=== PATIENT | male | born 1960 | race Caucasian/White ===

== ENCOUNTER 2019-02-01 10:24 | Inpatient (IN) | payer OTHER ==
[2019-02-01] MEDS ORDERED: ADENOSINE INJ/PF 6 MG/2 ML SDV IV ONE ×2 (10:28→10:35)
[2019-02-01] MEDS ORDERED: DILTIAZEM HCL INJ 25 MG/5 ML VIAL ONE (10:33)
[2019-02-01] MEDS ORDERED: DILTIAZEM HCL/D5W 125 MG/125 ML RTUINJ IV ONE (10:33)
[2019-02-01] MEDS ORDERED: ASPIRIN 81 MG TABLET, CHEWABLE PO ONE ×2 (10:34→20:20)
[2019-02-01] MEDS ORDERED: DILTIAZEM HCL INJ 25 MG/5 ML VIAL IV ONE ×2 (10:35→11:47)
[2019-02-01] MEDS: DILTIAZEM HCL/D5W 125 MG/125 ML RTUINJ IV PRN ×2 (10:36→18:05)
[2019-02-01 10:42] LABS: ABSOLUTE BASOPHILS # (AUTO) 0.1 10^3/uL (0.0-0.2); ABSOLUTE EOSINOPHILS # (AUTO) 0.1 10^3/uL (0.0-0.6); ABSOLUTE LYMPHOCYTES (AUTO) 1.2 10^3/uL (0.5-4.7); ABSOLUTE MONOCYTES (AUTO) 0.9 10^3/uL (0.1-1.4); ABSOLUTE NEUT (AUTO) 5.2 10^3/uL (1.7-8.2); EOSINOPHILS % (AUTO) 1.6 % (0-6); HEMATOCRIT 41.3 % (37.9-51.0); HEMOGLOBIN 14.3 g/dL (13.5-17.0); LYMPHOCYTES % (AUTO) 15.6 % (13-45); MEAN CORPUSCULAR HEMOGLOBIN 35.7 pg (27.0-33.4); MEAN CORPUSCULAR HGB CONC 34.6 g/dL (32.0-36.0); MEAN CORPUSCULAR VOLUME 103 fl (80-97); MONOCYTES % (AUTO) 12.4 % (3-13); PLATELET COUNT 242 10^3/uL (150-450); RED CELL DISTRIBUTION WIDTH 14.2 % (11.5-14.0); SEGMENTED NEUTROPHILS % (AUTO) 69.4 % (42-78); TOTAL CELLS COUNTED % (AUTO) 100 %; WHITE BLOOD COUNT 7.5 10^3/uL (4.0-10.5)
[2019-02-01] MEDS ORDERED: NORMAL SALINE 1000 ML 1,000 ML IV ONE (10:43)
[2019-02-01 11:08] LABS: CREATINE KINASE MB 0.58 ng/mL (<4.55); TROPONIN I 0.015 ng/mL
--- NOTE | 2019-02-01 11:11 | RADIOLOGY REPORT (SQ) ---
EXAM DESCRIPTION: CHEST SINGLE VIEW COMPLETED DATE/TIME: 02/01/2019 11:00 am REASON FOR STUDY: HR 230 COMPARISON: None. NUMBER OF VIEWS: One view. TECHNIQUE: Single frontal radiographic view of the chest acquired. LIMITATIONS: Overlying support apparatus. FINDINGS: LUNGS AND PLEURA: No opacities, masses or pneumothorax. No pleural effusion. MEDIASTINUM AND HILAR STRUCTURES: No masses. Contour normal. HEART AND VASCULAR STRUCTURES: Heart enlarged without failure. Normal vasculature. BONES: No acute findings. HARDWARE: None in the chest. OTHER: No other significant finding. IMPRESSION: HEART ENLARGED WITHOUT FAILURE. NO OTHER SIGNIFICANT RADIOGRAPHIC FINDING IN THE CHEST. TECHNICAL DOCUMENTATION: JOB ID: [id number] [employer]- All Rights Reserved Reading location - IP/workstation name: [email or web address]
[2019-02-01 11:26] LABS: FREE T4 (FREE THYROXINE) 1.31 ng/dL (0.78-2.19)
[2019-02-01 11:32] LABS: ALANINE AMINOTRANSFERASE 235 U/L (21-72); ALBUMIN 3.7 g/dL (3.5-5.0); ALKALINE PHOSPHATASE 472 U/L (38-126); ANION GAP 11 (5-19); ASPARTATE AMINO TRANSFERASE 192 U/L (17-59); BILIRUBIN,DIRECT 0.7 mg/dL (0.0-0.4); BILIRUBIN,TOTAL 1.4 mg/dL (0.2-1.3); BLOOD UREA NITROGEN 21 mg/dL (7-20); CALCIUM 9.7 mg/dL (8.4-10.2); CARBON DIOXIDE 23 mmol/L (22-30); CHLORIDE 104 mmol/L (98-107); CREATINE KINASE 41 U/L (55-170); GLUCOSE 127 mg/dL (75-110); POTASSIUM 4.9 mmol/L (3.6-5.0); SODIUM 138.1 mmol/L (137-145); TOTAL PROTEIN 6.8 g/dL (6.3-8.2)
[2019-02-01 11:40] LABS: THYROID STIMULATING HORMONE 1.94 uIU/mL (0.47-4.68)
[2019-02-01 11:44] LABS: LIPASE 129.6 U/L (23-300)
[2019-02-01 11:48] LABS: ALCOHOL < 10 mg/dL (NONE DETECTED)
--- NOTE | 2019-02-01 12:32 | RADIOLOGY REPORT (SQ) ---
EXAM DESCRIPTION: CTA CHEST COMPLETED DATE/TIME: 02/01/2019 12:19 pm REASON FOR STUDY: svt 220 elevated ddimer COMPARISON: Same day chest radiograph TECHNIQUE: CT scan of the chest performed using helical scanning technique with dynamic intravenous contrast injection. Images reviewed with lung, soft tissue and bone windows. Reconstructed coronal and sagittal MPR images reviewed. Additional 3 dimensional post-processing performed to develop Maximal Intensity Projection images (OR P). All images stored on PACS. All CT scanners at this facility use dose modulation, iterative reconstruction, and/or weight based d osing when appropriate to reduce radiation dose to as low as reasonably achievable (ALARA). [facility]: Dose Right [facility]: CareDose [facility]: Dose Right [facility]: Teradose 4D [facility]: exozet CONTRAST TYPE AND DOSE: contrast/concentration: Isovue 350.00 mg/ml; Total Contrast Delivered: 80.0 ml; Total Saline Delivered: 80.0 ml Contrast bolus optimized for the pulmonary arteries. Not diagnostic for the aorta. RENAL FUNCTION: GFR > 60. RADIATION DOSE: CT Rad equipment meets quality standard of care and radiation dose reduction techniq ues were employed. CTDIvol: 26.7 - 59.5 mGy. DLP: 1180 mGy-cm. . LIMITATIONS: None. FINDINGS: LUNGS AND PLEURA: There are innumerable small centrilobular pulmonary nodules and scattere d ground-glass opacities, and consolidation or atelectasis of the left greater than right lung bases. Mild interlobular septal thickening. Small bilateral pleural effusions. AORTA AND GREAT VESSELS: No aneurysm. Contrast bolus not optimized for the aorta. HEART: Small pericardial effusion. Cardiomegaly. No significant coronary artery calcifications. PULMONARY ARTERIES: No emboli visualized in the main pulmonary arteries or the segmental branches. HILAR AND MEDIASTINAL STRUCTURES: No identified masses or abnormal nodes. HARDWARE: None in the chest. UPPER ABDOMEN: Perihepatic ascites. THYROID AND OTHER SOFT TISSUES: No masses. No adenopathy. BONES: No acute or significant finding. 3D MIPS: Confirm above findings. OTHER: No other significant finding. IMPRESSION: 1. Negative examination for pulmonary embolism. 2. Scattered infectious or inflammatory ground-glass opacities and centrilobular nodules. 3. Mild pulmonary edema and small bilateral pleural effusions with associated left greater than righ t basilar consolidation or atelectasis. 4. Cardiomegaly and small pericardial effusion. 5. Perihepatic ascites. COMMENT: Quality ID # [id number]: Final reports with documentation of one or more dose reduction techniques (e.g., Automated exposure control, adjustment of the mA and/or kV according to patient size, use of iterative reconstruction technique) TECHNICAL DOCUMENTATION: JOB ID: [id number] [employer]- All Rights Reserved Reading location - IP/workstation name: [email or web address]
[2019-02-01] MEDS: ENOXAPARIN SODIUM INJ 100 MG/1 ML DISP.SYRIN SUBCUT SCH ×2 (13:03→22:23)
[2019-02-01] MEDS ORDERED: DIAZEPAM INJ 10 MG/2 ML DISP.SYRIN IV ONE (14:47)
--- NOTE | 2019-02-01 14:48 | ER Document Report ---
ED General - General Chief Complaint: Arrhythmia Stated Complaint: HEART RATE ISSUES Time Seen by Provider: 02/01/19 10:45 TRAVEL OUTSIDE OF THE [place] IN LAST 30 DAYS: No - HPI Patient complains to provider of: Palpitations Notes: Patient coming in for palpitations. Patient was found by EMS to have a heart rate of 220. Patient states he has been having palpitation for approximate 1-2 weeks. Patient does states that he does drink alcohol daily approximately 1/5 of liquor. Patient states that he has no medical issues is not taking medications not allergic to any medications patient denies any recent travel shortness of breath. Patient denies any trauma. Upon my evaluation patient is hooked up to the monitor heart rate is 220. Patient is alert and awake blood pressure is stable. Patient denies any chest pain abdominal pain nausea vomiting. Patient denies going through alcohol withdrawals patient states his last alcohol intake was approximately 48 hours ago. Patient was given adenosine by EMS 04/17/12 with no change in rhythm. We will set the patient up to perform adenosine again - Related Data Allergies/Adverse Reactions: No Known Allergies Allergy (Verified 02/01/19 10:37) Past Medical History - Social History Smoking Status: Current Every Day Smoker Frequency of alcohol use: Heavy Family History: Reviewed & Not Pertinent Patient has suicidal ideation: No Patient has homicidal ideation: No Renal/ Medical History: Denies: Hx Peritoneal Dialysis Review of Systems - Review of Systems Constitutional: No symptoms reported EENT: No symptoms reported Cardiovascular: Palpitations Respiratory: No symptoms reported Gastrointestinal: No symptoms reported Genitourinary: No symptoms reported Male Genitourinary: No symptoms reported Musculoskeletal: No symptoms reported Skin: No symptoms reported Hematologic/Lymphatic: No symptoms reported Neurological/Psychological: No symptoms reported -: Yes All other systems reviewed and negative Physical Exam - Vital signs Vitals: Resp Pulse Ox 33 H 92 02/01/19 10:26 02/01/19 10:26 Interpretation: Tachycardic - General General appearance: Appears well, Alert - HEENT Head: Normocephalic, Atraumatic Eyes: Normal Pupils: PERRL - Respiratory Respiratory status: No respiratory distress Chest status: Nontender Breath sounds: Normal Chest palpation: Normal - Cardiovascular Rhythm: Regular, Tachycardia Heart sounds: Normal auscultation Murmur: No - Abdominal Inspection: Normal Distension: No distension Bowel sounds: Normal Tenderness: Nontender Organomegaly: No organomegaly - Back Back: Normal, Nontender - Extremities General upper extremity: Normal inspection, Nontender, Normal color, Normal ROM, Normal temperature General lower extremity: Normal inspection, Nontender, Normal color, Normal ROM, Normal temperature, Normal weight bearing. No: Barbara's sign - Neurological Neuro grossly intact: Yes Cognition: Normal Orientation: AAOx4 Venancio Coma Scale Eye Opening: Spontaneous Venancio Coma Scale Verbal: Oriented Nora Coma Scale Motor: Obeys Commands Venancio Coma Scale Total: 15 Speech: Normal Motor strength normal: LUE, RUE, LLE, RLE Sensory: Normal - Psychological Associated symptoms: Normal affect, Normal mood - Skin Skin Temperature: Warm Skin Moisture: Dry Skin Color: Normal Course - Re-evaluation Re-evalutation: 02/01/19 14:46 Administration of adenosine 12 showed patient was in a flutter rhythm. Patient was given a bolus of Cardizem started on a drip with improvement of his heart rate patient continued to be able to to be consistent with a 2-1 block of a flutter. D-dimer did return elevated because of the continued elevation of his heart rate I did anticoagulate the patient with a dose of Lovenox. Discussed the patient's case with cardiology and hospitalist because of the continued tachycardia and Cardizem drip will admit the patient for further evaluation. - Vital Signs Vital signs: Temp Pulse Resp BP Pulse Ox 21 H 144/110 H 93 02/01/19 14:00 02/01/19 14:00 02/01/19 14:00 - Laboratory Result Diagrams: 02/01/19 10:20 02/01/19 10:20 Laboratory results interpreted by me: 02/01/19 02/01/19 02/01/19 10:20 10:20 10:47 RBC 4.00 L MCV 103 H MCH 35.7 H RDW 14.2 H D-Dimer 2.59 H BUN 21 H Glucose 127 H Total Bilirubin 1.4 H Direct Bilirubin 0.7 H AST 192 H ALT 235 H Alkaline Phosphatase 472 H Creatine Kinase 41 L Critical Care Note - Critical Care Note Total time excluding time spent on procedures (mins): 35 Comments: Multiple evaluations patient with SVT Discharge - Discharge Clinical Impression: SVT resolved, Chronic alcoholism, Elevated LFTs Atrial flutter Qualifiers: Atrial flutter type: unspecified Qualified Code(s): I48.92 - Unspecified atrial flutter Condition: Good Disposition: ADMITTED INPATIENT [facility] Unit Admitted: [facility]
[2019-02-01] MEDS ORDERED: ONDANSETRON 4 MG TAB.RAPDIS PO PRN (15:53)
[2019-02-01] MEDS ORDERED: LEVALBUTEROL HCL NEB 0.63 MG/3 ML AMPUL NEB PRN (15:53)
[2019-02-01] MEDS ORDERED: ACETAMINOPHEN 325 MG TABLET PO PRN (15:53)
[2019-02-01 16:27] LABS: URINE AMPHETAMINES SCREEN NEGATIVE; URINE COCAINE SCREEN NEGATIVE; URINE MARIJUANA (THC) SCREEN NEGATIVE; URINE METHADONE SCREEN NEGATIVE; URINE PHENCYCLIDINE SCREEN NEGATIVE
[2019-02-01 16:28] LABS: URINE BARBITURATES SCREEN NEGATIVE; URINE BENZODIAZEPINES SCREEN NEGATIVE
[2019-02-01] MEDS: DOCUSATE SODIUM 100 MG CAPSULE PO SCH (19:21)
--- NOTE | 2019-02-01 20:18 | PDOC H&P ---
History of Present Illness Admission Date/PCP: 02/01/19 15:22 History of Present Illness: LOU HEADLEY is a 58 year old male with no significant past medical history except for tobacco and alcohol abuse. Stating that he has had flulike symptoms for the last 1 week as he was getting better he started noticing that he was having palpitations on and off without any chest pain, dizziness or syncope. Denies any history of cardiac renal or liver disease however he stating that he has been having lower extremity edema for the last year and went to see a insurance account manager and was told that it was because of venous stasis. He drinks and smokes daily. Has never had any system of alcohol withdrawal. In ED he was found to have a heart rate of 220s he received adenosine which showed underlying rhythm of a flutter. He was started on Cardizem drip with improvement of his heart rate persistent a flutter consistent with 2-1 block. Hospital was consulted for admission. Social History Smoking Status: Current Every Day Smoker Hx Recreational Drug Use: Yes Hx Prescription Drug Abuse: No Family History Family History: Reviewed & Not Pertinent Parental Family History Reviewed: Yes Children Family History Reviewed: Yes Sibling(s) Family History Reviewed.: Yes Medication/Allergy Home Medications: Ibuprofen [Motrin 800 mg Tablet] 800 mg PO Q8HP PRN 02/01/19 Melatonin [Melatonin 3 mg Tablet] 6 mg PO QHS 02/01/19 Allergies/Adverse Reactions: No Known Allergies Allergy (Verified 02/01/19 10:37) Review of Systems Constitutional: PRESENT: as per HPI Eyes: PRESENT: as per HPI Nose, Mouth, and Throat: PRESENT: as per HPI Respiratory: PRESENT: as per HPI Gastrointestinal: PRESENT: as per HPI Musculoskeletal: PRESENT: as per HPI Neurological: PRESENT: as per HPI Physical Exam Vital Signs: Temp Pulse Resp BP Pulse Ox 97.7 F 18 138/106 H 94 02/01/19 18:37 02/01/19 18:37 02/01/19 17:31 02/01/19 18:37 Intake & Output 01/31/19 02/01/19 02/02/19 06:59 06:59 06:59 Intake Total 1091 Balance 1091 Weight 91.6 kg General appearance: PRESENT: no acute distress, well-developed, well-nourished Head exam: PRESENT: atraumatic, normocephalic Neck exam: ABSENT: carotid bruit, JVD, lymphadenopathy, thyromegaly Cardiovascular exam: PRESENT: irregular rhythm, tachycardia. ABSENT: diastolic murmur, rubs, systolic murmur GI/Abdominal exam: PRESENT: normal bowel sounds, soft. ABSENT: distended, guarding, mass, organolmegaly, rebound, tenderness Extremities exam: PRESENT: full ROM, +1 edema. ABSENT: calf tenderness, clubbing, pedal edema Neurological exam: PRESENT: alert, awake, oriented to person, oriented to place, oriented to time, oriented to situation, CN II-XII grossly intact. ABSENT: motor sensory deficit Results Laboratory Results: 02/01/19 10:20 02/01/19 10:20 02/01/19 02/01/19 02/01/19 10:20 10:20 10:30 WBC 7.5 RBC 4.00 L Hgb 14.3 Hct 41.3 MCV 103 H MCH 35.7 H MCHC 34.6 RDW 14.2 H Plt Count 242 Seg Neutrophils % 69.4 Lymphocytes % 15.6 Monocytes % 12.4 Eosinophils % 1.6 Basophils % 1.0 Absolute Neutrophils 5.2 Absolute Lymphocytes 1.2 Absolute Monocytes 0.9 Absolute Eosinophils 0.1 Absolute Basophils 0.1 Sodium 138.1 Potassium 4.9 Chloride 104 Carbon Dioxide 23 Anion Gap 11 BUN 21 H Creatinine 0.99 Est GFR ( Amer) > 60 Est GFR (Non-Af Amer) > 60 Glucose 127 H Calcium 9.7 Magnesium 1.9 Total Bilirubin 1.4 H AST 192 H ALT 235 H Alkaline Phosphatase 472 H Total Protein 6.8 Albumin 3.7 Lipase 129.6 TSH Free T4 02/01/19 10:30 WBC RBC Hgb Hct MCV MCH MCHC RDW Plt Count Seg Neutrophils % Lymphocytes % Monocytes % Eosinophils % Basophils % Absolute Neutrophils Absolute Lymphocytes Absolute Monocytes Absolute Eosinophils Absolute Basophils Sodium Potassium Chloride Carbon Dioxide Anion Gap BUN Creatinine Est GFR ( Amer) Est GFR (Non-Af Amer) Glucose Calcium Magnesium Total Bilirubin AST ALT Alkaline Phosphatase Total Protein Albumin Lipase TSH 1.94 Free T4 1.31 02/01/19 02/01/19 02/01/19 10:20 10:20 14:23 Creatine Kinase 41 L CK-MB (CK-2) 0.58 Troponin I 0.015 0.018 Impressions: Chest X-Ray 02/01/19 10:34 IMPRESSION: HEART ENLARGED WITHOUT FAILURE. NO OTHER SIGNIFICANT RADIOGRAPHIC FINDING IN THE CHEST. Chest/Abdomen CTA 02/01/19 11:46 IMPRESSION: 1. Negative examination for pulmonary embolism. 2. Scattered infectious or inflammatory ground-glass opacities and centrilobular nodules. 3. Mild pulmonary edema and small bilateral pleural effusions with associated left greater than right basilar consolidation or atelectasis. 4. Cardiomegaly and small pericardial effusion. 5. Perihepatic ascites. Assessment and Plan - Diagnosis (1) Atrial flutter Qualifiers: Atrial flutter type: unspecified Qualified Code(s): I48.92 - Unspecified atrial flutter Is this a current diagnosis for this admission?: Yes Plan: New onset. CHADSVASC Score 0. Troponins, TSH within normal limits. Denies any history of drug abuse. Endorses recent flulike symptoms. Start Cardizem drip to be transitioned to either p.o. Cardizem on beta-tyrell. Continue aspirin and statins. May not need chronic anticoagulation due to low risk. Will defer decision to cardiology. (2) Lower extremity edema Is this a current diagnosis for this admission?: Yes Plan: Denies any history of renal, cardiac or liver disease. We will obtain BNP and 2D echo. Meanwhile start on compression stocking and recommend lower extremity elevation. (3) Chronic alcoholism Is this a current diagnosis for this admission?: No Plan: Last alcohol intake 2 days ago. Will start on DT precautions. (4) Elevated LFTs Is this a current diagnosis for this admission?: Yes Plan: Denies any hepatotoxic substance ingestion. Patient does have history of alcoholism. Will check for hepatitis and liver ultrasound to rule out any cirrhosis. Trend LFTs. (5) Tobacco abuse Is this a current diagnosis for this admission?: Yes Plan: Strongly counseled on quitting. Will start on NicoDerm.
[2019-02-01] MEDS ORDERED: METOPROLOL TARTRATE PF/INJ 5 MG/5 ML SDV IV PRN (20:20)
[2019-02-01] MEDS: NORMAL SALINE 1000 ML 1,000 ML IV PRN (20:21)
--- NOTE | 2019-02-01 20:54 | EKG REPORT ---
SEVERITY:- ABNORMAL ECG - ATRIAL FLUTTER, A-RATE 0 : Confirmed by: Nikki Chavis MD 01-Feb-2019 20:54:08
--- NOTE | 2019-02-01 20:54 | EKG REPORT ---
SEVERITY:- OTHERWISE NORMAL ECG - ATRIAL FLUTTER, A-RATE 0 : Confirmed by: Nikki Chavis MD 01-Feb-2019 20:53:25
--- NOTE | 2019-02-01 20:54 | EKG REPORT ---
SEVERITY:- ABNORMAL ECG - WIDE COMPLEX TACHYCARDIA RIGHT BUNDLE BRANCH BLOCK : Confirmed by: Nikki Chavis MD 01-Feb-2019 20:54:16
[2019-02-01] MEDS ORDERED: HEPARIN SOD (PORCINE) 5,000 UNIT/ML 1 ML SYRINGE SUBCUT SCH (22:00)
[2019-02-01] MEDS: NICOTINE 7 MG/24 HR PATCH.TD24 TD SCH (22:23)
[2019-02-02] MEDS: DILTIAZEM HCL/D5W 125 MG/125 ML RTUINJ IV PRN ×3 (02:44→19:00)
[2019-02-02 05:26] LABS: HEMATOCRIT 36.6 % (37.9-51.0); HEMOGLOBIN 12.7 g/dL (13.5-17.0); MEAN CORPUSCULAR HEMOGLOBIN 35.4 pg (27.0-33.4); MEAN CORPUSCULAR HGB CONC 34.7 g/dL (32.0-36.0); MEAN CORPUSCULAR VOLUME 102 fl (80-97); PLATELET COUNT 210 10^3/uL (150-450); RED BLOOD COUNT 3.59 10^6/uL (4.35-5.55); RED CELL DISTRIBUTION WIDTH 14.2 % (11.5-14.0); WHITE BLOOD COUNT 6.9 10^3/uL (4.0-10.5)
[2019-02-02] MEDS: PANTOPRAZOLE SODIUM 20 MG TABLET.DR PO SCH (05:35)
[2019-02-02 05:37] LABS: ALANINE AMINOTRANSFERASE 164 U/L (21-72); ALBUMIN 3.3 g/dL (3.5-5.0); ALKALINE PHOSPHATASE 335 U/L (38-126); ANION GAP 8 (5-19); ASPARTATE AMINO TRANSFERASE 89 U/L (17-59); BILIRUBIN,DIRECT 0.4 mg/dL (0.0-0.4); BLOOD UREA NITROGEN 13 mg/dL (7-20); CARBON DIOXIDE 23 mmol/L (22-30); CHLORIDE 105 mmol/L (98-107); CHOLESTEROL 133.75 mg/dL (0-200); GLUCOSE 93 mg/dL (75-110); POTASSIUM 4.2 mmol/L (3.6-5.0); SODIUM 136.2 mmol/L (137-145); TRIGLYCERIDES 82 mg/dL (<150)
[2019-02-02 05:48] LABS: DIRECT LDL 73 mg/dL (<100)
--- NOTE | 2019-02-02 06:00 | RADIOLOGY REPORT (SQ) ---
EXAM DESCRIPTION: US ABDOMEN DOPPLER LIMITED COMPLETED DATE/TME: 02/02/2019 00:00 CLINICAL HISTORY: 58 years Male, elvated LFTs Comparison: None. LIMITATIONS: None. FINDINGS: Small right pleural effusion. Moderate hepatic steatosis. Gallbladder, negative sonographic Overton's test, a 0.4-cm diameter common bile duct, no intrahepatic ductal dilation, 12-cm right kidney, partially obscured pancreas, visualized vasculature/abdominal aorta, and no significant ascites appear otherwise unremarkable. IMPRESSION: 1. Small right pleural effusion. 2. Moderate hepatic steatosis.
[2019-02-02] MEDS: NORMAL SALINE 1000 ML 1,000 ML IV PRN (08:41)
[2019-02-02] MEDS: FUROSEMIDE 20 MG TABLET PO SCH ×2 (09:14→17:13)
[2019-02-02] MEDS: DOCUSATE SODIUM 100 MG CAPSULE PO SCH ×2 (09:14→17:11)
[2019-02-02] MEDS: NICOTINE 7 MG/24 HR PATCH.TD24 TD SCH (09:14)
[2019-02-02] MEDS: ENOXAPARIN SODIUM INJ 100 MG/1 ML DISP.SYRIN SUBCUT SCH ×2 (09:15→22:21)
[2019-02-02] MEDS ORDERED: METOPROLOL TARTRATE PF/INJ 5 MG/5 ML SDV IV PRN (11:02)
--- NOTE | 2019-02-02 11:03 | PDOC PROGRESS REPORT ---
Subjective Progress Note for:: 02/02/19 Subjective:: LOU HEADLEY is a 58 year old male with no significant past medical history except for tobacco and alcohol abuse. Stating that he has had flulike symptoms for the last 1 week as he was getting better he started noticing that he was having palpitations on and off without any chest pain, dizziness or syncope. Denies any history of cardiac renal or liver disease however he stating that he has been having lower extremity edema for the last year and went to see a de rmatologist and was told that it was because of venous stasis. He drinks and smokes daily. Has never had any system of alcohol withdrawal. In ED he was found to have a heart rate of 220s he received adenosine which showed underlying rhythm of a flutter. He was started on Cardizem drip with improvement of his heart rate persistent a flutter consistent with 2-1 block. 02/02/2019. No acute events overnight. Eyes any recurrence of palpitation, syncope, lightheadedness, chest pain or shortness of breath. Currently on Cardizem drip heart rate between 110-120s. No sign of EtOH withdrawal. Alert and oriented x3 in no apparent distress cooperative with physical examination. Reason For Visit: ATRIAL FLUTTER Physical Exam Vital Signs: Temp Pulse Resp BP Pulse Ox 98.0 F 112 H 16 122/83 93 02/01/19 23:30 02/02/19 10:00 02/02/19 08:20 02/02/19 10:00 02/02/19 08:20 Intake & Output 02/01/19 02/02/19 02/03/19 06:59 06:59 06:59 Intake Total 1551 987 Balance 1551 987 Weight 90.4 kg General appearance: PRESENT: no acute distress, well-developed, well-nourished Head exam: PRESENT: atraumatic, normocephalic Respiratory exam: PRESENT: clear to auscultation lv. ABSENT: rales, rhonchi, wheezes Cardiovascular exam: PRESENT: RRR, tachycardia. ABSENT: diastolic murmur, rubs, systolic murmur GI/Abdominal exam: PRESENT: normal bowel sounds, soft. ABSENT: distended, guarding, mass, organolmegaly, rebound, tenderness Extremities exam: PRESENT: +1 edema Neurological exam: PRESENT: alert, awake, oriented to person, oriented to place, oriented to time, oriented to situation, CN II-XII grossly intact. ABSENT: motor sensory deficit Results Laboratory Results: 02/02/19 04:58 02/02/19 04:58 02/01/19 02/01/19 02/01/19 10:20 10:20 10:30 WBC 7.5 RBC 4.00 L Hgb 14.3 Hct 41.3 MCV 103 H MCH 35.7 H MCHC 34.6 RDW 14.2 H Plt Count 242 Seg Neutrophils % 69.4 Lymphocytes % 15.6 Monocytes % 12.4 Eosinophils % 1.6 Basophils % 1.0 Absolute Neutrophils 5.2 Absolute Lymphocytes 1.2 Absolute Monocytes 0.9 Absolute Eosinophils 0.1 Absolute Basophils 0.1 Sodium 138.1 Potassium 4.9 Chloride 104 Carbon Dioxide 23 Anion Gap 11 BUN 21 H Creatinine 0.99 Est GFR ( Amer) > 60 Est GFR (Non-Af Amer) > 60 Glucose 127 H Calcium 9.7 Magnesium 1.9 Total Bilirubin 1.4 H AST 192 H ALT 235 H Alkaline Phosphatase 472 H Total Protein 6.8 Albumin 3.7 Triglycerides Cholesterol LDL Cholesterol Direct VLDL Cholesterol HDL Cholesterol Lipase 129.6 TSH Free T4 02/01/19 02/02/19 02/02/19 10:30 04:58 04:58 WBC 6.9 RBC 3.59 L Hgb 12.7 L Hct 36.6 L MCV 102 H MCH 35.4 H MCHC 34.7 RDW 14.2 H Plt Count 210 Seg Neutrophils % Lymphocytes % Monocytes % Eosinophils % Basophils % Absolute Neutrophils Absolute Lymphocytes Absolute Monocytes Absolute Eosinophils Absolute Basophils Sodium 136.2 L Potassium 4.2 Chloride 105 Carbon Dioxide 23 Anion Gap 8 BUN 13 Creatinine 0.70 Est GFR ( Amer) > 60 Est GFR (Non-Af Amer) > 60 Glucose 93 Calcium 9.0 Magnesium 1.8 Total Bilirubin 1.0 AST 89 H ALT 164 H Alkaline Phosphatase 335 H Total Protein 6.0 L Albumin 3.3 L Triglycerides 82 Cholesterol 133.75 LDL Cholesterol Direct 73 VLDL Cholesterol 16.0 HDL Cholesterol 57 Lipase TSH 1.94 Free T4 1.31 02/01/19 02/01/19 02/01/19 10:20 10:20 14:23 Creatine Kinase 41 L CK-MB (CK-2) 0.58 Troponin I 0.015 0.018 NT-Pro-B Natriuret Pep 02/01/19 14:23 Creatine Kinase CK-MB (CK-2) Troponin I NT-Pro-B Natriuret Pep 2480 H Impressions: Chest X-Ray 02/01/19 10:34 IMPRESSION: HEART ENLARGED WITHOUT FAILURE. NO OTHER SIGNIFICANT RADIOGRAPHIC FINDING IN THE CHEST. Chest/Abdomen CTA 02/01/19 11:46 IMPRESSION: 1. Negative examination for pulmonary embolism. 2. Scattered infectious or inflammatory ground-glass opacities and centrilobular nodules. 3. Mild pulmonary edema and small bilateral pleural effusions with associated left greater than right basilar consolidation or atelectasis. 4. Cardiomegaly and small pericardial effusion. 5. Perihepatic ascites. Abdomen Ultrasound 02/02/19 00:00 IMPRESSION: 1. Small right pleural effusion. 2. Moderate hepatic steatosis. Assessment and Plan - Diagnosis (1) Atrial flutter Qualifiers: Atrial flutter type: unspecified Qualified Code(s): I48.92 - Unspecified atrial flutter Is this a current diagnosis for this admission?: Yes Plan: New onset. CHADSVASC Score 0. Troponins, TSH within normal limits. Denies any history of drug abuse. Endorses recent flulike symptoms. Start Cardizem drip to be transitioned to either p.o. Cardizem on beta-tyrell. Continue aspirin and statins. May not need chronic anticoagulation due to low risk. Will defer decision to cardiology. (2) Lower extremity edema Is this a current diagnosis for this admission?: Yes Plan: Likely undiagnosed CHF. Denies any history of renal, cardiac or liver disease. Patient has hepatic steatosis and elevated BNP. Pending echo. Meanwhile start on compression stocking and recommend lower extremity elevation low-dose p.o. furosemide. (3) Chronic alcoholism Is this a current diagnosis for this admission?: No Plan: Last alcohol intake 2 days ago. Will start on DT precautions. No signs or symptoms of alcohol withdrawal. (4) Elevated LFTs Is this a current diagnosis for this admission?: Yes Plan: Improving. Denies any hepatotoxic substance ingestion. Patient does have history of alcoholism. Liver ultrasound positive for hepatic steatosis. Pending serology for hepatitis. Avoid hepatotoxic meds. (5) Tobacco abuse Is this a current diagnosis for this admission?: Yes Plan: Strongly counseled on quitting. Will start on NicoDerm.
[2019-02-02] MEDS ORDERED: DIGOXIN INJ 0.5 MG/2 ML AMPULE ONE (14:21)
[2019-02-02] MEDS ORDERED: DIGOXIN INJ 0.5 MG/2 ML AMPULE IV ONE (14:30)
[2019-02-02] MEDS: LISINOPRIL 5 MG TABLET PO SCH ×2 (15:11→22:22)
[2019-02-02] MEDS: NORMAL SALINE 1000 ML 1,000 ML with POTASSIUM CHLORIDE 20 MEQ, MAGNESIUM SULFATE 8 MEQ,... IV SCH ×5 (17:13)
[2019-02-02] MEDS: METOPROLOL SUCCINATE 25 MG TAB.SR.24H PO SCH (22:21)
--- NOTE | 2019-02-02 22:52 | PDOC CONSULTATION ---
Consultation-Blank Consultation: CARDIOLOGY CONSULTATION by Dr. Nikki Chavis on 02/02/2019. Patient seen at 2 PM on 02/03/3019. REASON FOR CONSULTATION: Atrial flutter with fast ventricular response. HISTORY OF PRESENT ILLNESS: 58-year-old male with known history of tobacco abuse, and daily intake of alcohol, but without any prior major medical illness, states that about a week ago he had flulike symptoms. He states he was getting better and subsequently noted palpitations. The palpitations were intermittent initially and subsequently became sustained. There was no associated chest pain or discomfort. There was no pleuritic chest pain. There is no shortness of breath. There was no dizziness or syncope or near syncope.. He states he went to urgent care, where he was found to have atrial flutter with rapid ventricular response into the emergency room. At present the patient's heart rate is still about 1 1 5 bpm on 15 mg of Cardizem drip infusion per hour. There is no TIA CVA symptoms. PAST MEDICAL ILLNESS: He denies any history of hypertension or diabetes mellitus. There is no history of TIA or CVA. There is no history of coronary artery disease. There is no prior episodes of palpitations or atrial or ventricular arrhythmias. There is no history of congestive heart failure. There is no history of coronary artery disease. There is no history of anginal symptoms or UT. He states he has been having chronic leg edema and was seen by a legal examiner and was told that he has venous stasis dermatitis. There is no history of thyroid problems. PAST SURGICAL HISTORY: The patient states that he had a smashed right index finger for which he had surgery in the past. ALLERGIES: The patient has no known allergies. FAMILY HISTORY: He states his brother he thinks might of atrial fibrillation. There is no history of diabetes mellitus hypertension or coronary artery disease in the family. DISPOSITION: The patient is a full code. Ms. Yamilex Ocampo is his surrogate healthcare decision maker. SOCIAL HISTORY: The patient states he drinks alcohol daily, amount not clear. He also smokes. He has never had delirium tremens. REVIEW OF SYSTEMS: CONSTITUTIONAL: Denies fever chills or rigors. HEAD: Denies headaches or head injury. EYES: NO HISTORY OF AMBLYOPIA DIPLOPIA. NO HISTORY OF AMAUROSIS FUGAX. Ears: No history of hearing loss. No tinnitus. NOSE: No history of nosebleeds. No history of hayfever. MOUTH: No history of altered taste sensation. No ulcers in the mouth. THROAT: No history of odynophagia or dysphagia. SKIN: No history of skin rashes or skin lesions. No history of psoriasis. No history of skin cancer. No history of pruritus. No history of jaundice. NECK: Denies any neck pain or swelling in the neck. LUNGS: No history of asthma or COPD. No history of sleep apnea. No history of pulmonary embolism. No history of cough or sputum production. No history of hemoptysis. No history of pleuritic chest pain HEART: First episode of atrial fibrillation started about a week ago with intermittent episodes of rapid palpitations. No history of chest pain or discomfort. No history of congestive heart failure. No history of dizziness or syncope or near syncope. No history of coronary artery disease. No history of congestive heart failure. No history of hypertension. ENDOCRINE: No history of diabetes mellitus or thyroid disease. No history of polydipsia polyuria. No history of heat or cold intolerance. MUSCULAR skeletal: No history of arthritis or collagen vascular disease. RENAL: No history of chronic kidney disease. No symptoms of UTI. No history of hematuria pyuria dysuria. METABOLIC: No history of obesity. No history of gout. No history of hyperlipidemia. MEDICAL SALES: No history of TIA CVA. No history of headaches migraines or seizures. PSYCHIATRIC: No history of anxiety or depression. No history of suicidal ideation. No history of homicidal ideation. VASCULAR: No history of DVT. No history of calf or buttock claudication. Also history of hematological: No history of bleeding diathesis or clotting disorders. No history of anemia. PHYSICAL EXAMINATION: The patient is well-built and well-nourished. At present no acute distress. He is well-groomed. Selected Entries 02/02/19 13:00 Temperature 98.7 F Pulse Rate 111 H Blood Pressure 132/86 H Blood Pressure 101 Mean O2 Sat by Pulse 94 Oximetry HEAD: Is atraumatic normocephalic. EYES: Pupils equal round regular reactive to light accommodation. Extraocular movements are normal. There is no clinical pallor. There is no scleral icterus. EARS: Tympanic memories are intact. External auditory canals are clear. NOSE: There is no deviated nasal septum. There is no inflammation nasal mucous membrane. MOUTH: Mucous membranes of mouth are moist tongue is moist there is no ulcers there is no bleeding from the gums. THROAT: There is no redness of the oropharynx. There is no exudates. SKIN: There is no skin rashes or skin lesions. There is no particular ecchymosis NECK: Is supple. There is no JVD. Carotids are equal there is no br uits. There is no lymphadenopathy. There is no goiter. There is no accessory muscle respiration use. Trachea central. LUNGS: There is no rhonchi or wheezing. There is bibasilar rales of CHF. On palpation there is no chest wall tenderness. HEART: S1-S2 is heard. S1 is of variable intensity. There is no S3 gallop. There is systolic murmur left sternal border and the apex there is no rub. ABDOMEN: Soft. There is no hepatosplenomegaly. Bowel sounds are well heard. There is no tender areas masses. Extremities: Femorals are well felt. Leg pulses well felt. There is trace to mild pedal edema there is no DVT or cellulitis. There is no cyanosis or clubbing. Capillary refill is normal MEDICAL SALES: The patient is conscious awake alert oriented x3 with no focal deficit. PSYCHIATRIC: The patient's judgment insight are intact his affect is normal. The patient's chest x-ray is negative. The patient is EKG is serially shows atrial flutter with rapid ventricular response. Diffuse ST-T changes most likely rate related. Current Medications Generic Name Dose Route Start Last Admin Trade Name Freq PRN Reason Stop Dose Admin Acetaminophen 650 mg 02/01/19 15:53 02/02/19 05:37 Tylenol 325 Mg Tablet PO 03/03/19 15:52 650 mg Q4HP PRN Administration FOR PAIN OR TEMP Digoxin 0.25 mg 02/03/19 10:00 Lanoxin 0.25 Mg Tablet PO 03/05/19 09:59 DAILY YANIRA Docusate Sodium 100 mg 02/01/19 18:00 02/02/19 17:11 Colace 100 Mg Capsule PO 03/03/19 17:59 Not Given BID YANIRA Enoxaparin Sodium 90 mg 02/01/19 12:00 02/02/19 22:21 Lovenox Inj 100 Mg/1 Ml Disp.Syrin SUBCUT 03/03/19 11:59 90 mg Q12 YANIRA Administration Furosemide 20 mg 02/02/19 10:00 02/02/19 17:13 Lasix 20 Mg Tablet PO 03/04/19 09:59 20 mg BID YANIRA Administration Diltiazem HCl 125 mg in 125 mls @ 0 mls/hr 02/01/19 10:36 02/02/19 19:00 Cardizem Rtu Inj 125 Mg-D5w 125 Ml Premix IV 03/03/19 10:35 15 mg/hr CONTINUOUS PRN 15 mls/hr THIS MED IS NOT "PRN" Administration Protocol Titrate Sodium Chloride 1,000 mls @ 80 mls/hr 02/01/19 15:53 02/02/19 18:39 Nacl 0.9% 1000 Ml Iv Soln IV 03/03/19 15:52 0 mls/hr CONTINUOUS PRN Infusion THIS MED IS NOT "PRN" Potassium Chloride 20 meq/ 1,023 mls @ 80 mls/hr 02/02/19 18:00 02/02/19 17:13 Magnesium Sulfate 8 meq/ IV 03/04/19 17:59 80 mls/hr Thiamine HCl 100 mg/ QPM YANIRA Administration Multivitamins/Minerals 10 ml/ Sodium Chloride Levalbuterol HCl 0.63 mg 02/01/19 15:53 Xopenex Neb 0.63 Mg/3 Ml Ampul NEB 03/03/19 15:52 RTQ6HP PRN SHORTNESS OF BREATH Lisinopril 2.5 mg 02/02/19 15:00 02/02/19 22:22 Prinivil 5 Mg Tablet PO 03/04/19 14:59 2.5 mg Q12 YANIRA Administration Metoprolol Succinate 25 mg 02/02/19 22:00 02/02/19 22:21 Toprol Xl 25 Mg Tab.Sr PO 03/04/19 21:59 25 mg Q12 YANIRA Administration Metoprolol Tartrate 2.5 mg 02/02/19 11:02 Lopressor Inj/Pf 5 Mg/5 Ml Sdv IV 03/04/19 11:00 Q4HP PRN Give For Hr > [120] Nicotine 1 each 02/01/19 22:00 02/02/19 09:14 Nicoderm 7 Mg/24 Hr Transdermal Patch TD 03/03/19 21:59 1 each DAILY YANIRA Administration Ondansetron HCl 4 mg 02/01/19 15:53 Zofran Odt 4 Mg Tablet PO 03/03/19 15:52 Q4HP PRN FOR NAUSEA/VOMITING Pantoprazole Sodium 20 mg 02/02/19 06:00 02/02/19 05:[address] Tablet PO 03/04/19 05:59 20 mg Q6AM YANIRA Administration Discontinued Medications Generic Name Dose Route Start Last Admin Trade Name Delaney PRN Reason Stop Dose Admin Adenosine Confirm 02/01/19 10:28 02/01/19 10:40 Adenocard Inj/Pf 6 Mg/2 Ml Sdv Administered 02/01/19 10:29 Not Given Dose 6 mg IV .STK-MED ONE Adenosine 12 mg 02/01/19 10:35 02/01/19 10:30 Adenocard Inj/Pf 6 Mg/2 Ml Sdv IV 02/01/19 10:36 12 mg NOW ONE Administration Aspirin 324 mg 02/01/19 10:34 02/01/19 11:03 Aspirin 81 Mg Chewable Tablet PO 02/01/19 10:35 324 mg NOW ONE Administration Aspirin 81 mg 02/01/19 20:20 02/01/19 22:15 Aspirin 81 Mg Chewable Tablet PO 02/01/19 20:21 Not Given NOW ONE Diazepam 2 mg 02/01/19 14:47 02/01/19 15:59 Valium Inj 10 Mg/2 Ml Disp.Syrin IV 02/01/19 14:48 2 mg NOW ONE Administration Digoxin 0.25 mg 02/02/19 14:30 02/02/19 14:37 Lanoxin Inj 0.5 Mg/2 Ml Ampule IV 02/02/19 14:31 0.25 mg NOW ONE Administration Digoxin Confirm 02/02/19 14:21 02/02/19 14:37 Lanoxin Inj 0.5 Mg/2 Ml Ampule Administered 02/02/19 14:22 Not Given Dose 0.5 mg .ROUTE .STK-MED ONE Diltiazem HCl 25 mg 02/01/19 10:35 02/01/19 10:36 Cardizem Inj 25 Mg/5 Ml Vial IV 02/01/19 10:36 25 mg NOW ONE Administration Diltiazem HCl Confirm 02/01/19 10:33 02/01/19 10:40 Cardizem Inj 25 Mg/5 Ml Vial Administered 02/01/19 10:34 Not Given Dose 25 mg .ROUTE .STK-MED ONE Diltiazem HCl 10 mg 02/01/19 11:47 Cardizem Inj 25 Mg/5 Ml Vial IV 02/01/19 11:48 NOW ONE Heparin Sodium (Porcine) 5,000 unit 02/01/19 22:00 Heparin Inj 5,000 Units/Ml 1 Ml Syringe SUBCUT 03/03/19 21:59 Q8 YANIRA Diltiazem HCl Confirm 02/01/19 10:33 02/01/19 10:41 Cardizem Rtu Inj 125 Mg-D5w 125 Ml Premix Administered 02/01/19 10:34 Not Given Dose 125 mg in 125 mls @ ud IV .STK-MED ONE Sodium Chloride 1,000 mls @ 0 mls/hr 02/01/19 10:43 02/01/19 11:48 Nacl 0.9% 1000 Ml Iv Soln IV 02/01/19 10:44 Infused BOLUS ONE Infusion Wide Open Metoprolol Tartrate 2.5 mg 02/01/19 20:20 Lopressor Inj/Pf 5 Mg/5 Ml Sdv IV 03/03/19 20:19 Q6HP PRN Give For Hr > [150] HOME MEDICATIONS: Ibuprofen [Motrin 800 mg Tablet] 800 mg PO Q8HP PRN 02/01/19 Melatonin [Melatonin 3 mg Tablet] 6 mg PO QHS 02/01/19 Labs- Entire Visit 02/01/19 02/01/19 02/01/19 10:20 10:20 10:20 WBC 7.5 RBC 4.00 L Hgb 14.3 Hct 41.3 MCV 103 H MCH 35.7 H MCHC 34.6 RDW 14.2 H Plt Count 242 Seg Neutrophils % 69.4 Lymphocytes % 15.6 Monocytes % 12.4 Eosinophils % 1.6 Basophils % 1.0 Absolute Neutrophils 5.2 Absolute Lymphocytes 1.2 Absolute Monocytes 0.9 Absolute Eosinophils 0.1 Absolute Basophils 0.1 D-Dimer Sodium 138.1 Potassium 4.9 Chloride 104 Carbon Dioxide 23 Anion Gap 11 BUN 21 H Creatinine 0.99 Est GFR ( Amer) > 60 Est GFR (Non-Af Amer) > 60 Glucose 127 H Hemoglobin A1c % Calcium 9.7 Magnesium Total Bilirubin 1.4 H Direct Bilirubin 0.7 H Neonat Total Bilirubin Not Reportable Neonat Direct Bilirubin Not Reportable Neonat Indirect Bili Not Reportable AST 192 H ALT 235 H Alkaline Phosphatase 472 H Creatine Kinase 41 L CK-MB (CK-2) 0.58 Troponin I 0.015 NT-Pro-B Natriuret Pep Total Protein 6.8 Albumin 3.7 Triglycerides Cholesterol LDL Cholesterol Direct VLDL Cholesterol HDL Cholesterol Lipase TSH Free T4 Urine Opiates Screen Urine Methadone Screen Ur Barbiturates Screen Ur Phencyclidine Scrn Ur Amphetamines Screen U Benzodiazepines Scrn Urine Cocaine Screen U Marijuana (THC) Screen Serum Alcohol 02/01/19 02/01/19 02/01/19 10:30 10:30 10:47 WBC RBC Hgb Hct MCV MCH MCHC RDW Plt Count Seg Neutrophils % Lymphocytes % Monocytes % Eosinophils % Basophils % Absolute Neutrophils Absolute Lymphocytes Absolute Monocytes Absolute Eosinophils Absolute Basophils D-Dimer 2.59 H Sodium Potassium Chloride Carbon Dioxide Anion Gap BUN Creatinine Est GFR ( Amer) Est GFR (Non-Af Amer) Glucose Hemoglobin A1c % Calcium Magnesium 1.9 Total Bilirubin Direct Bilirubin Neonat Total Bilirubin Neonat Direct Bilirubin Neonat Indirect Bili AST ALT Alkaline Phosphatase Creatine Kinase CK-MB (CK-2) Troponin I NT-Pro-B Natriuret Pep Total Protein Albumin Triglycerides Cholesterol LDL Cholesterol Direct VLDL Cholesterol HDL Cholesterol Lipase 129.6 TSH 1.94 Free T4 1.31 Urine Opiates Screen Urine Methadone Screen Ur Barbiturates Screen Ur Phencyclidine Scrn Ur Amphetamines Screen U Benzodiazepines Scrn Urine Cocaine Screen U Marijuana (THC) Screen Serum Alcohol < 10 02/01/19 02/01/19 02/01/19 14:23 14:23 15:38 WBC RBC Hgb Hct MCV MCH MCHC RDW Plt Count Seg Neutrophils % Lymphocytes % Monocytes % Eosinophils % Basophils % Absolute Neutrophils Absolute Lymphocytes Absolute Monocytes Absolute Eosinophils Absolute Basophils D-Dimer Sodium Potassium Chloride Carbon Dioxide Anion Gap BUN Creatinine Est GFR ( Amer) Est GFR (Non-Af Amer) Glucose Hemoglobin A1c % Calcium Magnesium Total Bilirubin Direct Bilirubin Neonat Total Bilirubin Neonat Direct Bilirubin Neonat Indirect Bili AST ALT Alkaline Phosphatase Creatine Kinase CK-MB (CK-2) Troponin I 0.018 NT-Pro-B Natriuret Pep 2480 H Total Protein Albumin Triglycerides Cholesterol LDL Cholesterol Direct VLDL Cholesterol HDL Cholesterol Lipase TSH Free T4 Urine Opiates Screen NEGATIVE Urine Methadone Screen NEGATIVE Ur Barbiturates Screen NEGATIVE Ur Phencyclidine Scrn NEGATIVE Ur Amphetamines Screen NEGATIVE U Benzodiazepines Scrn NEGATIVE Urine Cocaine Screen NEGATIVE U Marijuana (THC) Screen NEGATIVE Serum Alcohol 02/02/19 02/02/19 02/02/19 04:58 04:58 04:58 WBC 6.9 RBC 3.59 L Hgb 12.7 L Hct 36.6 L MCV 102 H MCH 35.4 H MCHC 34.7 RDW 14.2 H Plt Count 210 Seg Neutrophils % Lymphocytes % Monocytes % Eosinophils % Basophils % Absolute Neutrophils Absolute Lymphocytes Absolute Monocytes Absolute Eosinophils Absolute Basophils D-Dimer Sodium 136.2 L Potassium 4.2 Chloride 105 Carbon Dioxide 23 Anion Gap 8 BUN 13 Creatinine 0.70 Est GFR ( Amer) > 60 Est GFR (Non-Af Amer) > 60 Glucose 93 Hemoglobin A1c % 4.9 Calcium 9.0 Magnesium 1.8 Total Bilirubin 1.0 Direct Bilirubin 0.4 Neonat Total Bilirubin Not Reportable Neonat Direct Bilirubin Not Reportable Neonat Indirect Bili Not Reportable AST 89 H ALT 164 H Alkaline Phosphatase 335 H Creatine Kinase CK-MB (CK-2) Troponin I NT-Pro-B Natriuret Pep Total Protein 6.0 L Albumin 3.3 L Triglycerides 82 Cholesterol 133.75 LDL Cholesterol Direct 73 VLDL Cholesterol 16.0 HDL Cholesterol 57 Lipase TSH Free T4 Urine Opiates Screen Urine Methadone Screen Ur Barbiturates Screen Ur Phencyclidine Scrn Ur Amphetamines Screen U Benzodiazepines Scrn Urine Cocaine Screen U Marijuana (THC) Screen Serum Alcohol Chest X-Ray 02/01/19 10:34 IMPRESSION: HEART ENLARGED WITHOUT FAILURE. NO OTHER SIGNIFICANT RADIOGRAPHIC FINDING IN THE CHEST. Chest/Abdomen CTA 02/01/19 11:46 IMPRESSION: 1. Negative examination for pulmonary embolism. 2. Scattered infectious or inflammatory ground-glass opacities and centrilobular nodules. 3. Mild pulmonary edema and small bilateral pleural effusions with associated left greater than right basilar consolidation or atelectasis. 4. Cardiomegaly and small pericardial effusion. 5. Perihepatic ascites. Abdomen Ultrasound 02/02/19 00:00 IMPRESSION: 1. Small right pleural effusion. 2. Moderate hepatic steatosis. IMPRESSION/RECOMMENDATION: 1. Atrial flutter with rapid ventricular response. Continue the patient on IV Cardizem drip would recommend digoxin 0.25 mg IV push as needed. Unless the echo shows significant LV dysfunction, the patient's corrected Phani Vascor is 0. Hence would recommend placing the patient on aspirin. This is probably the best option, since the patient does have a history of daily alcohol use. 2. Congestive heart failure by exam and by CT scan of the chest. Most likely secondary to atrial flutter with rapid ventricular response, would need to assess LV ejection fraction for possible cardiac myopathy by echocardiogram. There is a high likelihood that the patient has reduced LV for function. Hence we will start the patient on PJ inhibitor and beta-tyrell. 3. Abnormal liver function tests: Most likely secondary to patient's alcohol use. 2. Note that the CTA of the chest shows pleural effusion. Hence would recommend getting a sed rate to assess to see if the patient has subclinical pericarditis. The patient may be asymptomatic from it due to the pleural pericardial effusion itself. 5. History of tobacco and alcohol use. Patient counseled to stop both these. Ill effects explained, and tobacco cessation's counseling done for 3 minutes. Medications reviewed. Medications adjusted. Management plan discussed with attending physician on the case and also with the patient. Medical decision making is of high complexity. 60 minutes spent on this patient, with more than 50% time spent in direct patient care.
[2019-02-03] MEDS: DILTIAZEM HCL/D5W 125 MG/125 ML RTUINJ IV PRN (02:38)
[2019-02-03] MEDS: PANTOPRAZOLE SODIUM 20 MG TABLET.DR PO SCH (05:31)
[2019-02-03] MEDS: NORMAL SALINE 1000 ML 1,000 ML IV PRN (05:31)
[2019-02-03 08:37] LABS: HEPATITIS A AB IGM Negative (Negative); HEPATITIS B CORE AB IGM Negative (Negative); HEPATITS B SURFACE ANTIGEN Negative (Negative)
[2019-02-03] MEDS: NICOTINE 7 MG/24 HR PATCH.TD24 TD SCH (09:15)
[2019-02-03] MEDS: DIGOXIN 0.25 MG TABLET PO SCH (09:16)
[2019-02-03] MEDS: FUROSEMIDE 20 MG TABLET PO SCH ×2 (09:16→17:27)
[2019-02-03] MEDS: DOCUSATE SODIUM 100 MG CAPSULE PO SCH ×2 (09:16→17:27)
[2019-02-03] MEDS: LISINOPRIL 5 MG TABLET PO SCH ×2 (09:16→23:15)
[2019-02-03] MEDS: METOPROLOL SUCCINATE 25 MG TAB.SR.24H PO SCH (09:16)
--- NOTE | 2019-02-03 10:20 | PDOC PROGRESS REPORT ---
Subjective Progress Note for:: 02/03/19 Subjective:: LOU HEADLEY is a 58 year old male with no significant past medical history except for tobacco and alcohol abuse. Stating that he has had flulike symptoms for the last 1 week as he was getting better he started noticing that he was having palpitations on and off without any chest pain, dizziness or syncope. Denies any history of cardiac renal or liver disease however he stating that he has been having lower extremity edema for the last year and went to see a de rmatologist and was told that it was because of venous stasis. He drinks and smokes daily. Has never had any system of alcohol withdrawal. In ED he was found to have a heart rate of 220s he received adenosine which showed underlying rhythm of a flutter. He was started on Cardizem drip with improvement of his heart rate persistent a flutter consistent with 2-1 block. 02/02/2019. No acute events overnight. Denies any recurrence of palpitation, syncope, lightheadedness, chest pain or shortness of breath. Currently on Cardizem drip heart rate between 110-120s. No sign of EtOH withdrawal. Alert and oriented x3 in no apparent distress cooperative with physical examination. 02/03/2019. No acute events overnight. Denies any recurrence of palpitation, syncope lightheadedness chest pain or any shortness of breath. Off of Cardizem drip since last night. Rate is controlled. No sign of EtOH withdrawal. Alert oriented x3 cooperative with physical examination. Lower extremity edema has improved since yesterday. Reason For Visit: ATRIAL FLUTTER Physical Exam Vital Signs: Temp Pulse Resp BP Pulse Ox 98.4 F 89 24 H 122/92 H 97 02/03/19 08:00 02/03/19 09:00 02/03/19 08:00 02/03/19 09:00 02/03/19 08:00 Intake & Output 02/02/19 02/03/19 02/04/19 06:59 06:59 06:59 Intake Total 1552 0558 1267 Output Total 6058 Balance 1551 -4234 1268 Weight 90.4 kg 89.1 kg General appearance: PRESENT: no acute distress, well-developed, well-nourished Head exam: PRESENT: atraumatic, normocephalic Neck exam: ABSENT: carotid bruit, JVD, lymphadenopathy, thyromegaly Respiratory exam: PRESENT: clear to auscultation lv. ABSENT: rales, rhonchi, wheezes Cardiovascular exam: PRESENT: RRR. ABSENT: diastolic murmur, rubs, systolic murmur GI/Abdominal exam: PRESENT: normal bowel sounds, soft. ABSENT: distended, guarding, mass, organolmegaly, rebound, tenderness Extremities exam: PRESENT: pedal edema - Bilateral. Trace Neurological exam: PRESENT: alert, awake, oriented to person, oriented to place, oriented to time, oriented to situation, CN II-XII grossly intact. ABSENT: motor sensory deficit Results Laboratory Results: 02/02/19 04:58 02/02/19 04:58 02/01/19 02/01/19 02/01/19 10:20 10:20 14:23 Creatine Kinase 41 L CK-MB (CK-2) 0.58 Troponin I 0.015 0.018 NT-Pro-B Natriuret Pep 02/01/19 14:23 Creatine Kinase CK-MB (CK-2) Troponin I NT-Pro-B Natriuret Pep 2480 H Impressions: Chest X-Ray 02/01/19 10:34 IMPRESSION: HEART ENLARGED WITHOUT FAILURE. NO OTHER SIGNIFICANT RADIOGRAPHIC FINDING IN THE CHEST. Chest/Abdomen CTA 02/01/19 11:46 IMPRESSION: 1. Negative examination for pulmonary embolism. 2. Scattered infectious or inflammatory ground-glass opacities and centrilobular nodules. 3. Mild pulmonary edema and small bilateral pleural effusions with associated left greater than right basilar consolidation or atelectasis. 4. Cardiomegaly and small pericardial effusion. 5. Perihepatic ascites. Abdomen Ultrasound 02/02/19 00:00 IMPRESSION: 1. Small right pleural effusion. 2. Moderate hepatic steatosis. Assessment and Plan - Diagnosis (1) Atrial flutter Qualifiers: Atrial flutter type: unspecified Qualified Code(s): I48.92 - Unspecified atrial flutter Is this a current diagnosis for this admission?: Yes Plan: Rate controlled. New onset. CHADSVASC Score 0. Troponins, TSH within normal limits. Denies any history of drug abuse. Endorses recent flulike symptoms. DC Cardizem. Start on beta-blockers. Continue aspirin and statins. No need for articulation due to low risk factor. Pending 2D echo read. Cardiology follow-up. (2) CHF (congestive heart failure) Qualifiers: Heart failure type: unspecified Heart failure chronicity: unspecified Qualified Code(s): I50.9 - Heart failure, unspecified Is this a current diagnosis for this admission?: Yes Plan: By labs and physical examination. Denies any history of CAD. Likely due to complication of A. fib/flutter. Elevated BNP. Pending 2D echo. Continue diuretics and cardiac diet. Low-dose PJ and beta-blockers, titrate up as tolerated. Outpatient PCP and cardiology follow-up. (3) Lower extremity edema Is this a current diagnosis for this admission?: Yes Plan: Likely undiagnosed CHF. Denies any history of renal, cardiac or liver disease. Patient has hepatic steatosis and elevated BNP. Pending echo. Much improved since being started on diuretics. (4) Chronic alcoholism Is this a current diagnosis for this admission?: No Plan: Last alcohol intake 2 days ago. Will start on DT precautions. No signs or symptoms of alcohol withdrawal. (5) Elevated LFTs Is this a current diagnosis for this admission?: Yes Plan: Improving. Denies any hepatotoxic substance ingestion. Patient does have history of alcoholism. Liver ultrasound positive for hepatic steatosis. Pending serology for hepatitis. Avoid hepatotoxic meds. (6) Tobacco abuse Is this a current diagnosis for this admission?: Yes Plan: Strongly counseled on quitting. On NicoDerm.
--- NOTE | 2019-02-03 11:05 | EKG REPORT ---
SEVERITY:- ABNORMAL ECG - ATRIAL FLUTTER, A-RATE 211 REPOL ABNRM SUGGESTS ISCHEMIA, DIFFUSE LEADS : Confirmed by: Nikki Chavis MD 03-Feb-2019 11:05:02
[2019-02-03] MEDS: HEPARIN SOD (PORCINE) 5,000 UNIT/ML 1 ML SYRINGE SUBCUT SCH ×2 (14:16→23:14)
--- NOTE | 2019-02-03 14:20 | XCELERA REPORT ---
[address] [address] Transthoracic Echocardiogram Report Name: LOU HEADLEY Age: 58 yrs Gender: Male : 1960 Patient Status: Inpatient Patient Location: [address] [place] [address] Study Date: 02/02/2019 01:11 PM Height: 72 in Weight: 199 lb BSA: 2.1 m2 Procedure: A two-dimensional transthoracic echocardiogram with color flow and Doppler was performed. Study Quality: Fair. Reason For Study: A.Flutter, CHF History: A.Albertoer, CHF. Ordering Physician: JUAN GARCIA Performed By: Josh Harmon Interpretation Summary Uper nomal LV size. There is mild concentric left ventricular hypertrophy. LV EF is 40% to 45% Left ventricular systolic function is moderately reduced. There is moderate global hypokinesis of the left ventricle. There is no thrombus. Probably no ASD,VSD , or PFO seen. The right ventricle is mild to moderately dilated. The right ventricle is not well visualized secondary to technical limitations The right atrium is mild to moderately dilated. The left atrium is moderately dilated. There is no evidence of mitral valve prolapse. There is no vegetation seen on the mitral valve. There is no mitral valve stenosis. There is a moderate amount of mitral regurgitation There is no aortic valvular vegetation. There is no aortic valve stenosis There is no LVOT obstruction. No aortic regurgitation is present. There is no tricuspid stenosis. There is a moderate amount of tricuspid regurgitation There is mild pulmonary hypertension by echo RVSP is 34 to 39 mm of Hg , with RA mean of 15 to 20.There most likely undersampling of TR jet and hence unerestimation of RVSP. The aortic root is normal size. The inferior vena cava appeared dilated and decreased < 50% with respiration (RAP 15-20 mmHg) Small pericardial effusion. There are no echocardiographic or Doppler indications for cardiac tamponade MMode/2D Measurements & Calculations RVDd: 4.3 cm LVIDd: 4.8 cm FS: 26.2 % Ao root diam: 3.7 cm IVSd: 1.3 cm LVIDs: 3.5 cm EDV(Teich): Ao root area: LVPWd: 1.7 cm 106.6 ml 10.7 cm2 ESV(Teich): 52.0 mlLA dimension: 4.5 cm EF(Teich): 51.3 % LVOT diam: 2.2 cmLVLd ap4: 8.5 cm SV(MOD-sp4): LVOT area: EDV(MOD-sp4): 61.0 ml 98.0 ml 3.8 cm2 LVLs ap4: 6.8 cm ESV(MOD-sp4): 37.0 ml EF(MOD-sp4): 62.2 % Doppler Measurements & Calculations MV E max franky: MV P1/2t max franky: Ao V2 max: LV V1 max P.4 cm/sec 105.2 cm/sec 126.8 cm/sec 4.0 mmHg MV A max franky: MV P1/2t: 81.5 msec Ao max PG: LV V1 mean P.3 cm/sec MVA(P1/2t): 2.7 cm2 6.4 mmHg 1.7 mmHg MV E/A: 1.2 MV dec slope: Ao V2 mean: LV V1 max: 378.1 cm/sec2 75.4 cm/sec 99.6 cm/sec MV dec time: 0.19 sec Ao mean PG: LV V1 mean: 2.7 mmHg 59.2 cm/sec Ao V2 VTI: 22.0 cmLV V1 VTI: 13.5 cm BONNY(I,D): 2.3 cm2 BONNY(V,D): 3.0 cm2 SV(LVOT): 51.7 ml PA V2 max: 88.6 cm/secTR max franky: MV P1/2t-pr_phl: PA max P.1 mmHg 217.2 cm/sec 81.5 msec TR max P.9 mmHg Left Ventricle Uper nomal LV size. There is mild concentric left ventricular hypertrophy. LV EF is 40% to 45%. Left ventricular systolic function is moderately reduced. There is moderate global hypokinesis of the left ventricle. There is no thrombus. Probably no ASD,VSD , or PFO seen. Right Ventricle The right ventricle is mild to moderately dilated. The right ventricle is not well visualized secondary to technical limitations. Atria The right atrium is mild to moderately dilated. The left atrium is moderately dilated. Mitral Valve There is no evidence of mitral valve prolapse. There is no vegetation seen on the mitral valve. There is no mitral valve stenosis. There is a moderate amount of mitral regurgitation. Aortic Valve There is no aortic valvular vegetation. There is no aortic valve stenosis. There is no LVOT obstruction. No aortic regurgitation is present. Tricuspid Valve There is no tricuspid stenosis. There is a moderate amount of tricuspid regurgitation. There is mild pulmonary hypertension by echo. RVSP is 34 to 39 mm of Hg , with RA mean of 15 to 20.There most likely undersampling of TR jet and hence unerestimation of RVSP. Pulmonic Valve There is no pulmonic valvular stenosis. There is no pulmonic valvular regurgitation. Great Vessels The aortic root is normal size. The inferior vena cava appeared dilated and decreased < 50% with respiration (RAP 15-20 mmHg). Effusions Small pericardial effusion. There are no echocardiographic or Doppler indications for cardiac tamponade. : JUAN GARCIA > Nikki Chavis
[2019-02-03] MEDS: NORMAL SALINE 1000 ML 1,000 ML with POTASSIUM CHLORIDE 20 MEQ, MAGNESIUM SULFATE 8 MEQ,... IV SCH ×5 (17:28)
--- NOTE | 2019-02-03 21:28 | Progress Note ---
Provider Note Provider Note: CARDIOLOGY PROGRESS NOTE by Dr. Nikki Chavis on 02/03/2019. SUBJECTIVE: The patient states that shortness of breath is much improved. He has no PND orthopnea. He has some cough productive of some minimal mucoid sputum. There is no chest pain or discomfort. There is trace leg edema. He continues to be in atrial flutter, with a ventricular response around 110-115 bpm. He is on a Cardizem drip of 15 mg/h. There is no TIA CVA symptoms. PHYSICAL EXAMINATION: The patient is well-built and well-nourished. In no acute distress. Selected Entries 02/03/19 11:57 Temperature 98.1 F Temperature Oral Source Pulse Rate 104 H Respiratory 24 H Rate Blood Pressure 131/78 H [Right Upper Arm] Blood Pressure 95 Mean [Right Upper Arm] Blood Pressure Supine Position [Right Upper Arm] O2 Sat by Pulse 98 Oximetry Oxygen Delivery Room Air Method ( includes room air) HEAD: Is atraumatic normocephalic. EYES: Pupils equal round regular reactive to light accommodation. Extraocular movements are normal. There is no clinical pallor. There is no scleral icterus. EARS: Tympanic memories are intact. External auditory canals are clear. NOSE: There is no deviated nasal septum. There is no inflammation nasal mucous membrane. MOUTH: Mucous membranes of mout h are moist tongue is moist there is no ulcers there is no bleeding from the gums. THROAT: There is no redness of the oropharynx. There is no exudates. SKIN: There is no skin rashes or skin lesions. There is no particular ecchymosis NECK: Is supple. There is no JVD. Carotids are equal there is no bruits. There is no lymphadenopathy. There is no goiter. There is no accessory muscle respiration use. Trachea central. LUNGS: There is no rhonchi or wheezing. There is bibasilar rales of CHF. On palpation there is no chest wall tenderness. HEART: S1-S2 is heard. S1 is of variable intensity. There is no S3 gallop. There is systolic murmur left sternal border and the apex there is no rub. ABDOMEN: Soft. There is no hepatosplenomegaly. Bowel sounds are well heard. There is no tender areas masses. Extremities: Femorals are well felt. Leg pulses well felt. There is trace pedal edema. There is some early changes of chronic venous stasis dermatitis. There is no DVT or cellulitis. There is no cyanosis or clubbing. Capillary refill is normal VISUAL DISPLAY MANAGER: The patient is conscious awake alert oriented x3 with no focal deficit. PSYCHIATRIC: The patient's judgment insight are intact his affect is normal. 02/03/19 09:15 ESR 22 H ECHOCARDIOGRAM: The patient's left ventricle is mildly dilated. There was moderate global hypokinesis with ejection fraction of 40% to 45%. There is moderate tricuspid regurgitation and moderate mitral regurgitation. There is left atrial, right atrial, and right ventricular enlargement. There is only mild pulmonary hypertension, but this may be due to underestimation of the RVSP due to under sampling of the TR jet. There is a small amount of pericardial effusion present. There is no aortic stenosis or aortic regurgitation. The patient's EKG shows atrial flutter, with ST-T changes suggestive of repolarization abnormalities. IMPRESSION/RECOMMENDATION: 1. Atrial flutter with rapid ventricular response. Continue the patient on IV Cardizem drip. Will continue the patient on digoxin 0.25 mg p.o. daily and get at this level in the morning. Also would recommend increase the patient's Toprol-XL to 50 mg p.o. every 12 hours. Hopefully this will let us wean and discontinue the patient's IV Cardizem drip.. 2. Congestive heart failure by exam and by CT scan of the chest. Most likely secondary to atrial flutter with rapid ventricular response, the patient with moderately reduced LV ejection fraction. 3. CARDIOMYOPATHY with moderately reduced LV ejection fraction. Since the patient has no history of hypertension or diabetes mellitus, most likely this is alcohol induced. The patient has been counseled to adhere to strict abstinence with no partake of alcohol. We will increase the patient's PJ inhibitor to 5 mg p.o. every 12 hours. 4. Abnormal liver function tests: Most likely secondary to patient's alcohol use. 5. History of tobacco and alcohol use. Patient counseled to stop both these. Ill effects explained, and tobacco cessation's counseling already done yesterday for 3 minutes. Medications reviewed. Medications adjusted. Management plan discussed with attending physician on the case and also with the patient. Medical decision making is of high complexity. 40 minutes spent on this patient, with more than 50% time spent in direct patient care.
[2019-02-03] MEDS: METOPROLOL SUCCINATE 50 MG TAB.SR.24H PO SCH (23:14)
[2019-02-04 05:19] LABS: ABSOLUTE BASOPHILS # (AUTO) 0.1 10^3/uL (0.0-0.2); ABSOLUTE EOSINOPHILS # (AUTO) 0.4 10^3/uL (0.0-0.6); ABSOLUTE LYMPHOCYTES (AUTO) 1.3 10^3/uL (0.5-4.7); ABSOLUTE MONOCYTES (AUTO) 0.7 10^3/uL (0.1-1.4); ABSOLUTE NEUT (AUTO) 5.4 10^3/uL (1.7-8.2); BASOPHILS % (AUTO) 0.9 % (0-2); EOSINOPHILS % (AUTO) 5.1 % (0-6); HEMATOCRIT 39.8 % (37.9-51.0); HEMOGLOBIN 13.7 g/dL (13.5-17.0); LYMPHOCYTES % (AUTO) 16.2 % (13-45); MEAN CORPUSCULAR HEMOGLOBIN 35.1 pg (27.0-33.4); MEAN CORPUSCULAR HGB CONC 34.4 g/dL (32.0-36.0); MEAN CORPUSCULAR VOLUME 102 fl (80-97); MONOCYTES % (AUTO) 9.5 % (3-13); PLATELET COUNT 233 10^3/uL (150-450); RED CELL DISTRIBUTION WIDTH 13.8 % (11.5-14.0); SEGMENTED NEUTROPHILS % (AUTO) 68.3 % (42-78); TOTAL CELLS COUNTED % (AUTO) 100 %; WHITE BLOOD COUNT 7.9 10^3/uL (4.0-10.5)
[2019-02-04] MEDS: PANTOPRAZOLE SODIUM 20 MG TABLET.DR PO SCH (05:27)
[2019-02-04] MEDS: HEPARIN SOD (PORCINE) 5,000 UNIT/ML 1 ML SYRINGE SUBCUT SCH ×3 (05:27→22:20)
[2019-02-04 05:45] LABS: ALANINE AMINOTRANSFERASE 95 U/L (21-72); ALBUMIN 3.4 g/dL (3.5-5.0); ALKALINE PHOSPHATASE 254 U/L (38-126); ANION GAP 6 (5-19); ASPARTATE AMINO TRANSFERASE 35 U/L (17-59); BILIRUBIN,DIRECT 0.4 mg/dL (0.0-0.4); BILIRUBIN,TOTAL 0.8 mg/dL (0.2-1.3); BLOOD UREA NITROGEN 11 mg/dL (7-20); CALCIUM 9.6 mg/dL (8.4-10.2); CARBON DIOXIDE 26 mmol/L (22-30); CHLORIDE 104 mmol/L (98-107); DIGOXIN 1.01 ng/mL (0.8-2.0); GLUCOSE 96 mg/dL (75-110); POTASSIUM 4.3 mmol/L (3.6-5.0); SODIUM 135.8 mmol/L (137-145); TOTAL PROTEIN 6.3 g/dL (6.3-8.2)
[2019-02-04 07:14] LABS: HEPATITIS C VIRUS ANTIBODY <0.1 s/co ratio (0.0-0.9)
[2019-02-04] MEDS: DOCUSATE SODIUM 100 MG CAPSULE PO SCH ×2 (09:15→17:10)
[2019-02-04] MEDS: FUROSEMIDE 20 MG TABLET PO SCH ×2 (09:22→16:34)
[2019-02-04] MEDS: DIGOXIN 0.25 MG TABLET PO SCH (09:22)
[2019-02-04] MEDS: NICOTINE 7 MG/24 HR PATCH.TD24 TD SCH (09:22)
[2019-02-04] MEDS: LISINOPRIL 5 MG TABLET PO SCH ×2 (09:23→22:20)
[2019-02-04] MEDS: METOPROLOL SUCCINATE 50 MG TAB.SR.24H PO SCH ×2 (09:23→22:20)
[2019-02-04] MEDS ORDERED: DIGOXIN INJ 0.5 MG/2 ML AMPULE IV ONE (10:15)
--- NOTE | 2019-02-04 15:42 | PDOC PROGRESS REPORT ---
Subjective Progress Note for:: 02/04/19 Subjective:: No adverse events overnight. No new complaints. His heart rate and his blood pressure were up a little bit this morning, and he says that he has had to make a few stressful phone calls this morning. He was up ambulating independently in the room whenever I came in. No chest pain or shortness of breath. Reason For Visit: ATRIAL FLUTTER Physical Exam Vital Signs: Temp Pulse Resp BP Pulse Ox 98.0 F 113 H 17 142/102 H 97 02/04/19 14:56 02/04/19 14:56 02/04/19 14:56 02/04/19 14:56 02/04/19 14:56 Intake & Output 02/03/19 02/04/19 02/05/19 06:59 06:59 06:59 Intake Total 2868 4091 920 Output Total 6075 1950 Balance -3207 2141 920 Weight 89.1 kg 86.8 kg General appearance: PRESENT: no acute distress, cooperative, disheveled Respiratory exam: PRESENT: clear to auscultation lv, symmetrical. ABSENT: accessory muscle use, crackles, prolonged expiratory phas, rhonchi, tachypnea, wheezes Cardiovascular exam: PRESENT: +S1, +S2, tachycardia Pulses: PRESENT: normal carotid pulses Vascular exam: PRESENT: normal capillary refill GI/Abdominal exam: PRESENT: normal bowel sounds, soft. ABSENT: distended, guarding, rigid, tenderness Extremities exam: ABSENT: clubbing, pedal edema Musculoskeletal exam: PRESENT: ambulatory, normal inspection. ABSENT: deformity Neurological exam: PRESENT: alert, awake, oriented to person, oriented to place, oriented to time, oriented to situation Psychiatric exam: PRESENT: anxious Skin exam: PRESENT: dry, warm Results Laboratory Results: 02/04/19 05:05 02/04/19 05:05 02/04/19 02/04/19 05:05 05:05 WBC 7.9 RBC 3.90 L Hgb 13.7 Hct 39.8 MCV 102 H MCH 35.1 H MCHC 34.4 RDW 13.8 Plt Count 233 Seg Neutrophils % 68.3 Lymphocytes % 16.2 Monocytes % 9.5 Eosinophils % 5.1 Basophils % 0.9 Absolute Neutrophils 5.4 Absolute Lymphocytes 1.3 Absolute Monocytes 0.7 Absolute Eosinophils 0.4 Absolute Basophils 0.1 Sodium 135.8 L Potassium 4.3 Chloride 104 Carbon Dioxide 26 Anion Gap 6 BUN 11 Creatinine 0.82 Est GFR ( Amer) > 60 Est GFR (Non-Af Amer) > 60 Glucose 96 Calcium 9.6 Total Bilirubin 0.8 AST 35 ALT 95 H Alkaline Phosphatase 254 H Total Protein 6.3 Albumin 3.4 L 02/01/19 02/01/19 02/01/19 10:20 10:20 14:23 Creatine Kinase 41 L CK-MB (CK-2) 0.58 Troponin I 0.015 0.018 NT-Pro-B Natriuret Pep 02/01/19 14:23 Creatine Kinase CK-MB (CK-2) Troponin I NT-Pro-B Natriuret Pep 2480 H Impressions: Chest X-Ray 02/01/19 10:34 IMPRESSION: HEART ENLARGED WITHOUT FAILURE. NO OTHER SIGNIFICANT RADIOGRAPHIC FINDING IN THE CHEST. Chest/Abdomen CTA 02/01/19 11:46 IMPRESSION: 1. Negative examination for pulmonary embolism. 2. Scattered infectious or inflammatory ground-glass opacities and centrilobular nodules. 3. Mild pulmonary edema and small bilateral pleural effusions with associated left greater than right basilar consolidation or atelectasis. 4. Cardiomegaly and small pericardial effusion. 5. Perihepatic ascites. Abdomen Ultrasound 02/02/19 00:00 IMPRESSION: 1. Small right pleural effusion. 2. Moderate hepatic steatosis. Assessment and Plan - Diagnosis (1) Atrial flutter Qualifiers: Atrial flutter type: unspecified Qualified Code(s): I48.92 - Unspecified atrial flutter Is this a current diagnosis for this admission?: Yes Plan: Resolved. Now on a low level sinus tachycardia. He is on metoprolol and digoxin. Cardiology has been consulted. (2) CHF (congestive heart failure) Qualifiers: Heart failure type: systolic Heart failure chronicity: acute on chronic Qualified Code(s): I50.23 - Acute on chronic systolic (congestive) heart failure Is this a current diagnosis for this admission?: Yes Plan: Newly diagnosed on echocardiogram. Cardiology is been consulted. Stress test is pending. Acute exacerbation has resolved. (3) Chronic alcoholism Is this a current diagnosis for this admission?: Yes Plan: Suspect that his cardiomyopathy is due to his alcoholism. He is getting vitamin supplementation. Monitoring for withdrawal. Have strongly encouraged abstinence. - Time Time Spent with patient: 25-34 minutes
[2019-02-04] MEDS: NORMAL SALINE 1000 ML 1,000 ML with POTASSIUM CHLORIDE 20 MEQ, MAGNESIUM SULFATE 8 MEQ,... IV SCH ×5 (16:34)
--- NOTE | 2019-02-04 23:11 | Progress Note ---
Provider Note Provider Note: CARDIOLOGY PROGRESS NOTE by Dr. Nikki Chavis on 02/04/2019. SUBJECTIVE: The patient continues to be in atrial flutter with ventricular response in the 110s. He denies any chest pain or discomfort. There is no PND orthopnea. The patient's blood pressure is high suggesting that the patient is late and hypertension. History and the need to rethink strategy of placing the patient on chronic anticoagulation, in view of the patient's hypertension, Kenneth Patrick, and the congestive heart failure. Also the patient is cardiomyopathy. There is no TIA CVA symptoms. There is no PND orthopnea. There is no shortness of breath. There is no ventricular arrhythmia seen on the monitor. PHYSICAL EXAMINATION: The patient is well-built and well-nourished. He is well- groomed. He is in no acute distress. Selected Entries 02/04/19 07:31 Temperature 99.7 F Temperature Axillary Source Pulse Rate 111 H Respiratory 17 Rate Blood Pressure 153/103 H Blood Pressure 119 Mean BP Location Left Arm BP Position Supine O2 Sat by Pulse 94 Oximetry Oxygen Delivery Room Air Method HEAD: Is atraumatic normocephalic. EYES: Pupils equal round regular reactive to light accommodation. Extraocular movements are normal. There is no clinical pallor. There is no scleral icterus. EARS: Tympanic memories are intact. External auditory canals are clear. NOSE: There is no deviated nasal septum. There is no inflammation nasal mucous membrane. MOUTH: Mucous membranes of mouth are moist tongue is moist there is no ulcers there is no bleeding from the gums. THROAT: There is no redness of the oropharynx. There is no exudates. SKIN: There is no skin rashes or skin lesions. There is no particular ecchymosis NECK: Is supple. There is no JVD. Carotids are equal there is no bruits. There is no lymphadenopathy. There is no goiter. There is no accessory muscle respiration use. Trachea central. LUNGS: There is no rhonchi or wheezing. There is bibasilar rales of CHF. On palpation there is no chest wall tenderness. HEART: S1-S2 is heard. S1 is of variable intensity. There is no S3 gallop. There is systolic murmur left sternal border and the apex there is no rub. ABDOMEN: Soft. There is no hepatosplenomegaly. Bowel sounds are well heard. There is no tender areas masses. Extremities: Femorals are well felt. Leg pulses well felt. There is trace pedal edema. There is some early changes of chronic venous stasis dermatitis. There is no DVT or cellulitis. There is no cyanosis or clubbing. Capillary refill is normal ADVISOR TO COMMAND IN COMBAT: The patient is conscious awake alert oriented x3 with no focal deficit. PSYCHIATRIC: The patient's judgment insight are intact his affect is normal. Labs- All tests 24 hr 02/01/19 02/04/19 02/04/19 10:30 05:05 05:05 WBC 7.9 RBC 3.90 L Hgb 13.7 Hct 39.8 MCV 102 H MCH 35.1 H MCHC 34.4 RDW 13.8 Plt Count 233 Seg Neutrophils % 68.3 Lymphocytes % 16.2 Monocytes % 9.5 Eosinophils % 5.1 Basophils % 0.9 Absolute Neutrophils 5.4 Absolute Lymphocytes 1.3 Absolute Monocytes 0.7 Absolute Eosinophils 0.4 Absolute Basophils 0.1 Sodium 135.8 L Potassium 4.3 Chloride 104 Carbon Dioxide 26 Anion Gap 6 BUN 11 Creatinine 0.82 Est GFR ( Amer) > 60 Est GFR (Non-Af Amer) > 60 Glucose 96 Calcium 9.6 Total Bilirubin 0.8 Direct Bilirubin 0.4 Neonat Total Bilirubin Not Reportable Neonat Direct Bilirubin Not Reportable Neonat Indirect Bili Not Reportable AST 35 ALT 95 H Alkaline Phosphatase 254 H Total Protein 6.3 Albumin 3.4 L Digoxin 1.01 Hepatitis A IgM Ab Negative Hep Bs Antigen Negative Hep B Core IgM Ab Negative Hepatitis C Antibody <0.1 IMPRESSION/RECOMMENDATION: 1. Atrial flutter with rapid ventricular response. Continue the patient on IV Cardizem drip. Will continue the patient on digoxin 0.25 mg p.o. daily and get at this level in the morning. We will increase the patient's beta-tyrell to 75 mg p.o. every 12 hours. Continue the patient on digoxin. As mentioned earlier the patient seemingly has latent hypertension. In view of this the patient's congestive heart failure with a reduced LV ejection fraction the patient is now with a corrected Phani Vascor of 2 at least. Hence patient would benefit from chronic anticoagulation. Will discuss with the patient again. 2. Congestive heart failure by exam and by CT scan of the chest. Most likely secondary to atrial flutter with rapid ventricular response, the patient with moderately reduced LV ejection fraction. 3. CARDIOMYOPATHY with moderately reduced LV ejection fraction. Since the patient has no history of hypertension or diabetes mellitus, most likely this is alcohol induced. The patient has been counseled to adhere to strict abstinence with no partake of alcohol. We will increase the patient's PJ inhibitor to 20 mg p.o. every 12 hours. 4. HYPERTENSION: Most likely patient has latent hypertension. As mentioned earlier we will increase the patient's beta tyrell, and also as mentioned earlier we will increase the patient's lisinopril. 5. Abnormal liver function tests: Most likely secondary to patient's alcohol use. 6. History of tobacco and alcohol use. Patient counseled to stop both these. Ill effects explained, and tobacco cessation's counseling already done yesterday for 3 minutes. Medications reviewed. Medications adjusted. Management plan discussed with attending physician on the case and also with the patient. Medical decision making is of high complexity. 40 minutes spent on this patient, with more than 50% time spent in direct patient care.
[2019-02-04] MEDS ORDERED: METOPROLOL SUCCINATE 50 MG TAB.SR.24H PO ONE (23:30)
[2019-02-04] MEDS ORDERED: LISINOPRIL 5 MG TABLET PO ONE ×2 (23:30→23:45)
[2019-02-04] MEDS ORDERED: METOPROLOL SUCCINATE 25 MG TAB.SR.24H PO ONE (23:45)
[2019-02-05] MEDS: PANTOPRAZOLE SODIUM 20 MG TABLET.DR PO SCH (05:19)
[2019-02-05] MEDS: HEPARIN SOD (PORCINE) 5,000 UNIT/ML 1 ML SYRINGE SUBCUT SCH ×3 (05:19→21:30)
--- NOTE | 2019-02-05 08:18 | RADIOLOGY REPORT (SQ) ---
EXAM DESCRIPTION: CHEST SINGLE VIEW COMPLETED DATE/TIME: 02/05/2019 7:58 am REASON FOR STUDY: CHF COMPARISON: 02/01/2019 EXAM PARAMETERS: NUMBER OF VIEWS: One view. TECHNIQUE: Single frontal radiographic view of the chest acquired. RADIATION DOSE: NA LIMITATIONS: None. FINDINGS: LUNGS AND PLEURA: Bibasilar atelectasis/infiltrates, slightly more so on the left. Sligh t blunting of costophrenic angles suggests very small pleural effusions. No pneumothorax. MEDIASTINUM AND HILAR STRUCTURES: No masses. Contour normal. HEART AND VASCULAR STRUCTURES: Cardiomegaly, stable finding. Normal vasculature. BONES: The osseous structures are stable in appearance. HARDWARE: None in the chest. OTHER: No other significant finding. IMPRESSION: 1. As on the prior examination dated 02/01/2019, cardiomegaly. 2. Bibasilar atelectasis/infiltrates, more so on the left. Very small bilateral pleural effusions. TECHNICAL DOCUMENTATION: JOB ID: [id number] [employer]- All Rights Reserved Reading location - IP/workstation name: [email or web address]
[2019-02-05] MEDS: DOCUSATE SODIUM 100 MG CAPSULE PO SCH ×2 (09:06→16:36)
[2019-02-05] MEDS: FUROSEMIDE 20 MG TABLET PO SCH ×2 (09:14→16:35)
[2019-02-05] MEDS: DIGOXIN 0.25 MG TABLET PO SCH (09:14)
[2019-02-05] MEDS: METOPROLOL SUCCINATE 50 MG TAB.SR.24H PO SCH ×2 (09:15→21:29)
[2019-02-05] MEDS: NICOTINE 7 MG/24 HR PATCH.TD24 TD SCH (09:15)
[2019-02-05] MEDS: DIPHENHYDRAMINE HCL 25 MG CAPSULE PO PRN ×2 (09:21→21:29)
[2019-02-05] MEDS ORDERED: LISINOPRIL 5 MG TABLET PO SCH (10:00)
--- NOTE | 2019-02-05 16:26 | PDOC PROGRESS REPORT ---
Subjective Progress Note for:: 02/05/19 Subjective:: No adverse events overnight. No new complaints. He is really concerned about being able to get back to work. He denies any chest pain or shortness of breath. And ambulating independently in the room. Reason For Visit: ATRIAL FLUTTER Physical Exam Vital Signs: Temp Pulse Resp BP Pulse Ox 98.5 F 115 H 18 121/82 96 02/05/19 15:16 02/05/19 15:16 02/05/19 15:16 02/05/19 15:16 02/05/19 15:16 Intake & Output 02/04/19 02/05/19 02/06/19 06:59 06:59 06:59 Intake Total 4091 3367 Output Total 1950 2300 Balance 2141 1067 Weight 86.8 kg 82.2 kg General appearance: PRESENT: no acute distress, cooperative, disheveled Respiratory exam: PRESENT: clear to auscultation lv, symmetrical. ABSENT: accessory muscle use, crackles, prolonged expiratory phas, rhonchi, tachypnea, wheezes Cardiovascular exam: PRESENT: +S1, +S2, tachycardia Pulses: PRESENT: normal carotid pulses Vascular exam: PRESENT: normal capillary refill GI/Abdominal exam: PRESENT: normal bowel sounds, soft. ABSENT: distended, guarding, rigid, tenderness Extremities exam: ABSENT: clubbing, pedal edema Musculoskeletal exam: PRESENT: ambulatory, normal inspection. ABSENT: deformity Neurological exam: PRESENT: alert, awake, oriented to person, oriented to place, oriented to time, oriented to situation Psychiatric exam: PRESENT: anxious Skin exam: PRESENT: dry, warm Results Laboratory Results: 02/04/19 05:05 02/04/19 05:05 02/01/19 02/01/19 02/01/19 10:20 10:20 14:23 Creatine Kinase 41 L CK-MB (CK-2) 0.58 Troponin I 0.015 0.018 NT-Pro-B Natriuret Pep 02/01/19 14:23 Creatine Kinase CK-MB (CK-2) Troponin I NT-Pro-B Natriuret Pep 2480 H Impressions: Chest/Abdomen CTA 02/01/19 11:46 IMPRESSION: 1. Negative examination for pulmonary embolism. 2. Scattered infectious or inflammatory ground-glass opacities and centrilobular nodules. 3. Mild pulmonary edema and small bilateral pleural effusions with associated left greater than right basilar consolidation or atelectasis. 4. Cardiomegaly and small pericardial effusion. 5. Perihepatic ascites. Abdomen Ultrasound 02/02/19 00:00 IMPRESSION: 1. Small right pleural effusion. 2. Moderate hepatic steatosis. Chest X-Ray 02/04/19 00:00 IMPRESSION: 1. As on the prior examination dated 02/01/2019, cardiomegaly. 2. Bibasilar atelectasis/infiltrates, more so on the left. Very small bilateral pleural effusions. Assessment and Plan - Diagnosis (1) Atrial flutter Qualifiers: Atrial flutter type: unspecified Qualified Code(s): I48.92 - Unspecified atrial flutter Is this a current diagnosis for this admission?: Yes Plan: Resolved. Currently in a sinus rhythm. Still little tachycardic but his metoprolol has been increased to go along with his digoxin. Dr. Chavis has recommended that he start Eliquis. Were trying to get him some samples and information on patient assistance programs. (2) CHF (congestive heart failure) Qualifiers: Heart failure type: systolic Heart failure chronicity: acute on chronic Qualified Code(s): I50.23 - Acute on chronic systolic (congestive) heart failure Is this a current diagnosis for this admission?: Yes Plan: Newly diagnosed on echocardiogram. Systolic with an EF of 40%. Cardiology is been consulted. Stress test is pending. Acute exacerbation has resolved. (3) Chronic alcoholism Is this a current diagnosis for this admission?: Yes Plan: Suspect that his cardiomyopathy is due to his alcoholism. He is getting vitamin supplementation. Monitoring for withdrawal. Have strongly encouraged abstinence. - Time Time Spent with patient: 25-34 minutes
[2019-02-05] MEDS: NORMAL SALINE 1000 ML 1,000 ML with POTASSIUM CHLORIDE 20 MEQ, MAGNESIUM SULFATE 8 MEQ,... IV SCH ×5 (16:35)
[2019-02-05] MEDS: LISINOPRIL 10 MG TABLET PO SCH (21:29)
--- NOTE | 2019-02-05 23:12 | Progress Note ---
Provider Note Provider Note: Cardiology progress note by Dr. Nikki Chavis on 02/05/2019 SUBJECTIVE: The patient continues to be in atrial flutter with the fast ventricular response the ventricular response is in the 1 1 5/min range. The patient is denies any chest pain or discomfort. There is no shortness of breath. There is no PND orthopnea. There is no cough or sputum production. He has only trace leg edema. His liver function tests are abnormal but are trending down. There is no TIA CVA symptoms. PHYSICAL EXAMINATION: The patient is well-built and well-nourished in no acute distress. Selected Entries 02/05/19 08:07 Temperature 98.4 F Temperature Oral Source Pulse Rate 116 H Respiratory 18 Rate Blood Pressure 134/91 H Blood Pressure 105 Mean BP Location Left Arm BP Position Sitting O2 Sat by Pulse 94 Oximetry Oxygen Delivery Room Air Method HEAD: Is atraumatic normocephalic. EYES: Pupils equal round regular reactive to light accommodation. Extraocular movements are normal. There is no clinical pallor. There is no scleral icterus. EARS: Tympanic memories are intact. Ex ternal auditory canals are clear. NOSE: There is no deviated nasal septum. There is no inflammation nasal mucous membrane. MOUTH: Mucous membranes of mouth are moist tongue is moist there is no ulcers there is no bleeding from the gums. THROAT: There is no redness of the oropharynx. There is no exudates. SKIN: There is no skin rashes or skin lesions. There is no particular ecchymosis NECK: Is supple. There is no JVD. Carotids are equal there is no bruits. There is no lymphadenopathy. There is no goiter. There is no accessory muscle respiration use. Trachea central. LUNGS: There is no rhonchi or wheezing. There is bibasilar rales of CHF. On palpation there is no chest wall tenderness. HEART: S1-S2 is heard. S1 is of variable intensity. There is no S3 gallop. There is systolic murmur left sternal border and the apex there is no rub. ABDOMEN: Soft. There is no hepatosplenomegaly. Bowel sounds are well heard. There is no tender areas masses. Extremities: Femorals are well felt. Leg pulses well felt. There is trace pedal edema. There is some early changes of chronic venous stasis dermatitis. There is no DVT or cellulitis. There is no cyanosis or clubbing. 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 PSYCHIATRIC: The patient's judgment insight are intact his affect is mariel Labs- All tests 24 hr 02/05/19 02/05/19 20:51 20:51 Potassium 5.0 Digoxin 0.70 L IMPRESSION/RECOMMENDATION: 1. Atrial flutter with rapid ventricular response. Continue the patient on IV Cardizem drip. Will continue the patient on digoxin 0.25 mg p.o. daily and get at this level in the morning. We will increase the patient's beta-tyrell to 75 mg p.o. every 12 hours. Continue the patient on digoxin. As mentioned earlier the patient seemingly has latent hypertension. In view of this the patient's congestive heart failure with a reduced LV ejection fraction the patient is now with a corrected Phani Vascor of 2 at least. Hence patient would benefit from chronic anticoagulation. Will discuss with the patient again. Discussed at length Coumadin versus the newer anticoagulation agents. Note that the patient does have abnormal liver function test. Also there is a cost which the patient believes he may not be able to afford. Hence the patient given time to see whether he wants to be on Coumadin or the newer or anticoagulation agents. In view of the patient's heart rate being still high elevated will increase the patient's beta-tyrell. 2. Congestive heart failure by exam and by CT scan of the chest. Most likely secondary to atrial flutter with rapid ventricular response, the patient with moderately reduced LV ejection fraction. 3. CARDIOMYOPATHY with moderately reduced LV ejection fraction. Since the patient has no history of hypertension or diabetes mellitus, most likely this is alcohol induced. The patient has been counseled to adhere to strict abstinence with no partake of alcohol. We will increase the patient's PJ inhibitor to 20 mg p.o. every 12 hours. 4. HYPERTENSION: Most likely patient has latent hypertension. As mentioned earlier we will increase the patient's beta tyrell, and also as mentioned earlier we will increase the patient's lisinopril. 5. Abnormal liver function tests: Most likely secondary to patient's alcohol use. 6. History of tobacco and alcohol use. Patient counseled to stop both these. Ill effects explained, and tobacco cessation's counseling already done yesterday for 3 minutes. Medications reviewed. Medications adjusted. Management plan discussed with attending physician on the case and also with the patient. Medical decision making is of high complexity. 40 minutes spent on this patient, with more than 50% time spent in direct patient care.
[2019-02-05] MEDS ORDERED: METOPROLOL SUCCINATE 50 MG TAB.SR.24H PO ONE (23:15)
[2019-02-05] MEDS ORDERED: METOPROLOL SUCCINATE 25 MG TAB.SR.24H PO ONE (23:30)
[2019-02-06] MEDS: PANTOPRAZOLE SODIUM 20 MG TABLET.DR PO SCH (05:06)
[2019-02-06] MEDS: HEPARIN SOD (PORCINE) 5,000 UNIT/ML 1 ML SYRINGE SUBCUT SCH (05:06)
[2019-02-06] MEDS: LISINOPRIL 10 MG TABLET PO SCH ×2 (09:26→21:35)
[2019-02-06] MEDS: METOPROLOL SUCCINATE 50 MG TAB.SR.24H PO SCH ×2 (09:27→21:36)
[2019-02-06] MEDS: DIGOXIN 0.25 MG TABLET PO SCH (09:27)
[2019-02-06] MEDS: FUROSEMIDE 20 MG TABLET PO SCH ×2 (09:27→17:59)
[2019-02-06] MEDS: DIPHENHYDRAMINE HCL 25 MG CAPSULE PO PRN ×2 (09:27→19:33)
[2019-02-06] MEDS: DOCUSATE SODIUM 100 MG CAPSULE PO SCH ×2 (09:28→18:00)
[2019-02-06] MEDS: NICOTINE 7 MG/24 HR PATCH.TD24 TD SCH (09:28)
[2019-02-06] MEDS ORDERED: DIGOXIN 0.05 MG/ML SOLN 60 ML PO ONE (10:49)
[2019-02-06] MEDS ORDERED: FUROSEMIDE INJ/PF 20 MG/2 ML SDV IV ONE (12:00)
[2019-02-06] MEDS ORDERED: DIGOXIN INJ 0.5 MG/2 ML AMPULE IV ONE (12:30)
[2019-02-06] MEDS ORDERED: DIGOXIN 0.25 MG TABLET PO ONE (12:30)
--- NOTE | 2019-02-06 16:18 | PDOC PROGRESS REPORT ---
Subjective Progress Note for:: 02/06/19 Subjective:: No adverse events overnight. No new complaints. He is been able to perform his ADLs independently. Heart rate remained elevated but his blood pressure has improved. He denies any chest pain or shortness of breath. Reason For Visit: ATRIAL FLUTTER Physical Exam Vital Signs: Temp Pulse Resp BP Pulse Ox 98.3 F 115 H 16 115/89 H 97 02/06/19 11:22 02/06/19 14:00 02/06/19 11:22 02/06/19 11:22 02/06/19 11:22 Intake & Output 02/05/19 02/06/19 02/07/19 06:59 06:59 06:59 Intake Total 3367 1421 Output Total 2300 5325 650 Balance 1067 -3904 -650 Weight 82.2 kg 81.3 kg General appearance: PRESENT: no acute distress, cooperative, disheveled Respiratory exam: PRESENT: clear to auscultation lv, symmetrical. ABSENT: accessory muscle use, crackles, prolonged expiratory phas, rhonchi, tachypnea, wheezes Cardiovascular exam: PRESENT: +S1, +S2, tachycardia Pulses: PRESENT: normal carotid pulses Vascular exam: PRESENT: normal capillary refill GI/Abdominal exam: PRESENT: normal bowel sounds, soft. ABSENT: distended, guarding, rigid, tenderness Extremities exam: ABSENT: clubbing, pedal edema Musculoskeletal exam: PRESENT: ambulatory, normal inspection. ABSENT: deformity Neurological exam: PRESENT: alert, awake, oriented to person, oriented to place, oriented to time, oriented to situation Psychiatric exam: PRESENT: anxious Skin exam: PRESENT: dry, warm Results Laboratory Results: 02/04/19 05:05 02/05/19 20:51 02/05/19 20:51 Potassium 5.0 02/01/19 02/01/19 02/01/19 10:20 10:20 14:23 Creatine Kinase 41 L CK-MB (CK-2) 0.58 Troponin I 0.015 0.018 NT-Pro-B Natriuret Pep 02/01/19 14:23 Creatine Kinase CK-MB (CK-2) Troponin I NT-Pro-B Natriuret Pep 2480 H Impressions: Chest/Abdomen CTA 02/01/19 11:46 IMPRESSION: 1. Negative examination for pulmonary embolism. 2. Scattered infectious or inflammatory ground-glass opacities and centrilobular nodules. 3. Mild pulmonary edema and small bilateral pleural effusions with associated left greater than right basilar consolidation or atelectasis. 4. Cardiomegaly and small pericardial effusion. 5. Perihepatic ascites. Abdomen Ultrasound 02/02/19 00:00 IMPRESSION: 1. Small right pleural effusion. 2. Moderate hepatic steatosis. Chest X-Ray 02/04/19 00:00 IMPRESSION: 1. As on the prior examination dated 02/01/2019, cardiomegaly. 2. Bibasilar atelectasis/infiltrates, more so on the left. Very small bilateral pleural effusions. Assessment and Plan - Diagnosis (1) Atrial flutter Qualifiers: Atrial flutter type: unspecified Qualified Code(s): I48.92 - Unspecified atrial flutter Is this a current diagnosis for this admission?: Yes Plan: Resolved. Currently in a sinus rhythm. Still little tachycardic and his metoprolol has been increased again up to 100 mg twice a day to go along with his digoxin. Dr. Chavis has recommended that he start Clavister. Were trying to get him some samples and information on patient assistance programs. (2) CHF (congestive heart failure) Qualifiers: Heart failure type: systolic Heart failure chronicity: acute on chronic Qualified Code(s): I50.23 - Acute on chronic systolic (congestive) heart failure Is this a current diagnosis for this admission?: Yes Plan: Newly diagnosed on echocardiogram. Systolic with an EF of 40%. Cardiology is been consulted. Stress test is pending, but may possibly be getting done as an outpatient. Acute exacerbation has resolved. (3) Chronic alcoholism Is this a current diagnosis for this admission?: Yes Plan: Suspect that his cardiomyopathy is due to his alcoholism. He is getting vitamin supplementation. Monitoring for withdrawal. Have strongly encouraged abstinence. - Time Time Spent with patient: 25-34 minutes
[2019-02-06] MEDS: NORMAL SALINE 1000 ML 1,000 ML with POTASSIUM CHLORIDE 20 MEQ, MAGNESIUM SULFATE 8 MEQ,... IV SCH ×5 (17:59)
[2019-02-06] MEDS: APIXABAN 5 MG TABLET PO SCH (17:59)
[2019-02-06] MEDS: ALPRAZOLAM 0.25 MG TABLET PO PRN (22:58)
[2019-02-07] MEDS: PANTOPRAZOLE SODIUM 20 MG TABLET.DR PO SCH (05:08)
[2019-02-07] MEDS ORDERED: DIGOXIN INJ 0.5 MG/2 ML AMPULE IV ONE (08:30)
[2019-02-07] MEDS: APIXABAN 5 MG TABLET PO SCH ×2 (10:16→17:56)
[2019-02-07] MEDS: FUROSEMIDE 20 MG TABLET PO SCH ×2 (10:16→17:56)
[2019-02-07] MEDS: DIGOXIN 0.25 MG TABLET PO SCH (10:16)
[2019-02-07] MEDS: DIPHENHYDRAMINE HCL 25 MG CAPSULE PO PRN ×2 (10:16→21:37)
[2019-02-07] MEDS: DOCUSATE SODIUM 100 MG CAPSULE PO SCH ×2 (10:16→17:54)
[2019-02-07] MEDS: METOPROLOL SUCCINATE 50 MG TAB.SR.24H PO SCH ×2 (10:16→21:38)
[2019-02-07] MEDS: LISINOPRIL 10 MG TABLET PO SCH ×2 (10:16→21:37)
[2019-02-07] MEDS: NICOTINE 7 MG/24 HR PATCH.TD24 TD SCH (10:17)
[2019-02-07] MEDS: ALPRAZOLAM 0.25 MG TABLET PO PRN (12:37)
--- NOTE | 2019-02-07 17:51 | PDOC PROGRESS REPORT ---
Subjective Progress Note for:: 02/07/19 Subjective:: No adverse events overnight. No new complaints. He is been able to perform his ADLs independently. Heart rate remained elevated but his blood pressure has improved. He denies any chest pain or shortness of breath. Heart rate remains right around 110. Reason For Visit: ATRIAL FLUTTER Physical Exam Vital Signs: Temp Pulse Resp BP Pulse Ox 98.6 F 110 H 14 93/68 L 98 02/07/19 15:12 02/07/19 15:12 02/07/19 15:12 02/07/19 15:12 02/07/19 15:12 Intake & Output 02/06/19 02/07/19 02/08/19 06:59 06:59 06:59 Intake Total 2444 1536 1560 Output Total 5325 7145 150 Balance -2881 -9 1410 Weight 81.3 kg 81.5 kg General appearance: PRESENT: no acute distress, cooperative, disheveled Respiratory exam: PRESENT: clear to auscultation lv, symmetrical. ABSENT: accessory muscle use, crackles, prolonged expiratory phas, rhonchi, tachypnea, wheezes Cardiovascular exam: PRESENT: +S1, +S2, tachycardia Pulses: PRESENT: normal carotid pulses Vascular exam: PRESENT: normal capillary refill GI/Abdominal exam: PRESENT: normal bowel sounds, soft. ABSENT: distended, guarding, rigid, tenderness Extremities exam: ABSENT: clubbing, pedal edema Musculoskeletal exam: PRESENT: ambulatory, normal inspection. ABSENT: deformity Neurological exam: PRESENT: alert, awake, oriented to person, oriented to place, oriented to time, oriented to situation Psychiatric exam: PRESENT: anxious Skin exam: PRESENT: dry, warm Results Laboratory Results: 02/04/19 05:05 02/05/19 20:51 02/01/19 02/01/19 02/01/19 10:20 10:20 14:23 Creatine Kinase 41 L CK-MB (CK-2) 0.58 Troponin I 0.015 0.018 NT-Pro-B Natriuret Pep 02/01/19 14:23 Creatine Kinase CK-MB (CK-2) Troponin I NT-Pro-B Natriuret Pep 2480 H Impressions: Chest/Abdomen CTA 02/01/19 11:46 IMPRESSION: 1. Negative examination for pulmonary embolism. 2. Scattered infectious or inflammatory ground-glass opacities and centrilobular nodules. 3. Mild pulmonary edema and small bilateral pleural effusions with associated left greater than right basilar consolidation or atelectasis. 4. Cardiomegaly and small pericardial effusion. 5. Perihepatic ascites. Abdomen Ultrasound 02/02/19 00:00 IMPRESSION: 1. Small right pleural effusion. 2. Moderate hepatic steatosis. Chest X-Ray 02/04/19 00:00 IMPRESSION: 1. As on the prior examination dated 02/01/2019, cardiomegaly. 2. Bibasilar atelectasis/infiltrates, more so on the left. Very small bilate ral pleural effusions. Assessment and Plan - Diagnosis (1) Atrial flutter Qualifiers: Atrial flutter type: unspecified Qualified Code(s): I48.92 - Unspecified atrial flutter Is this a current diagnosis for this admission?: Yes Plan: Resolved. Currently in a sinus rhythm. Still little tachycardic and his metoprolol has been increased again up to 100 mg twice a day to go along with his digoxin. Dr. Chavis has recommended that he start Eliquis. We have gotten him some samples and information on patient assistance programs. (2) CHF (congestive heart failure) Qualifiers: Heart failure type: systolic Heart failure chronicity: acute on chronic Qualified Code(s): I50.23 - Acute on chronic systolic (congestive) heart failure Is this a current diagnosis for this admission?: Yes Plan: Newly diagnosed on echocardiogram. Systolic with an EF of 40%. Cardiology is b een consulted. Stress test has been scheduled for tomorrow morning. Acute exacerbation has resolved. (3) Chronic alcoholism Is this a current diagnosis for this admission?: Yes Plan: Suspect that his cardiomyopathy is due to his alcoholism. He is getting vitamin supplementation. Monitoring for withdrawal. Have strongly encouraged abstinence. - Time Time Spent with patient: 15-24 minutes
[2019-02-07] MEDS: NORMAL SALINE 1000 ML 1,000 ML with POTASSIUM CHLORIDE 20 MEQ, MAGNESIUM SULFATE 8 MEQ,... IV SCH ×5 (17:57)
[2019-02-08] MEDS: PANTOPRAZOLE SODIUM 20 MG TABLET.DR PO SCH (06:18)
[2019-02-08] MEDS: DIPHENHYDRAMINE HCL 25 MG CAPSULE PO PRN ×2 (06:19→17:38)
[2019-02-08] MEDS ORDERED: DIGOXIN INJ 0.5 MG/2 ML AMPULE IV ONE (08:30)
[2019-02-08] MEDS: FUROSEMIDE 20 MG TABLET PO SCH ×2 (09:32→17:36)
[2019-02-08] MEDS: APIXABAN 5 MG TABLET PO SCH ×2 (09:32→17:36)
[2019-02-08] MEDS: DIGOXIN 0.25 MG TABLET PO SCH (09:32)
[2019-02-08] MEDS: NICOTINE 7 MG/24 HR PATCH.TD24 TD SCH (09:32)
[2019-02-08] MEDS: LISINOPRIL 10 MG TABLET PO SCH ×2 (09:32→21:59)
[2019-02-08] MEDS: DOCUSATE SODIUM 100 MG CAPSULE PO SCH ×2 (09:34→17:36)
[2019-02-08] MEDS ORDERED: REGADENOSON INJ 0.4 MG/5 ML DISP.SYRIN IV ONE (10:27)
[2019-02-08] MEDS: NORMAL SALINE 1000 ML 1,000 ML with POTASSIUM CHLORIDE 20 MEQ, MAGNESIUM SULFATE 8 MEQ,... IV SCH ×5 (17:36)
--- NOTE | 2019-02-08 18:25 | PDOC PROGRESS REPORT ---
Subjective Progress Note for:: 02/08/19 Subjective:: No adverse events overnight. No new complaints. Vital signs been stable. Heart rate still running around 105-110. He had his stress test today. He tolerated it well. Reason For Visit: ATRIAL FLUTTER Physical Exam Vital Signs: Temp Pulse Resp BP Pulse Ox 98.4 F 112 H 14 100/72 100 02/08/19 15:21 02/08/19 15:21 02/08/19 15:21 02/08/19 15:21 02/08/19 15:21 Intake & Output 02/07/19 02/08/19 02/09/19 06:59 06:59 06:59 Intake Total 1536 3782 250 Output Total 3575 3575 400 Balance -2039 207 -150 Weight 81.5 kg 79.1 kg General appearance: PRESENT: no acute distress, cooperative, disheveled Respiratory exam: PRESENT: clear to auscultation lv, symmetrical. ABSENT: accessory muscle use, crackles, prolonged expiratory phas, rhonchi, tachypnea, wheezes Cardiovascular exam: PRESENT: +S1, +S2, tachycardia Pulses: PRESENT: normal carotid pulses Vascular exam: PRESENT: normal capillary refill GI/Abdominal exam: PRESENT: normal bowel sounds, soft. ABSENT: distended, guarding, rigid, tenderness Extremities exam: ABSENT: clubbing, pedal edema Musculoskeletal exam: PRESENT: ambulatory, normal inspection. ABSENT: deformity Neurological exam: PRESENT: alert, awake, oriented to person, oriented to place, oriented to time, oriented to situation Psychiatric exam: PRESENT: anxious Skin exam: PRESENT: dry, warm Results Laboratory Results: 02/04/19 05:05 02/05/19 20:51 02/01/19 02/01/19 02/01/19 10:20 10:20 14:23 Creatine Kinase 41 L CK-MB (CK-2) 0.58 Troponin I 0.015 0.018 NT-Pro-B Natriuret Pep 02/01/19 14:23 Creatine Kinase CK-MB (CK-2) Troponin I NT-Pro-B Natriuret Pep 2480 H Impressions: Chest/Abdomen CTA 02/01/19 11:46 IMPRESSION: 1. Negative examination for pulmonary embolism. 2. Scattered infectious or inflammatory ground-glass opacities and centrilobular nodules. 3. Mild pulmonary edema and small bilateral pleural effusions with associated left greater than right basilar consolidation or atelectasis. 4. Cardiomegaly and small pericardial effusion. 5. Perihepatic ascites. Abdomen Ultrasound 02/02/19 00:00 IMPRESSION: 1. Small right pleural effusion. 2. Moderate hepatic steatosis. Chest X-Ray 02/04/19 00:00 IMPRESSION: 1. As on the prior examination dated 02/01/2019, cardiomegaly. 2. Bibasilar atelectasis/infiltrates, more so on the left. Very small bilateral pleural effusions. Assessment and Plan - Diagnosis (1) Atrial flutter Qualifiers: Atrial flutter type: unspecified Qualified Code(s): I48.92 - Unspecified atrial flutter Is this a current diagnosis for this admission?: Yes Plan: Resolved. Currently in a sinus rhythm. Still little tachycardic and his metoprolol has been increased again up to 100 mg twice a day to go along with his digoxin. Dr. Chavis has recommended that he start Eliquis. We have gotten him some samples and information on patient assistance programs. (2) CHF (congestive heart failure) Qualifiers: Heart failure type: systolic Heart failure chronicity: acute on chronic Qualified Code(s): I50.23 - Acute on chronic systolic (congestive) heart failure Is this a current diagnosis for this admission?: Yes Plan: Newly diagnosed on echocardiogram. Systolic with an EF of 40%. Cardiology is been consulted. 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 Acute exacerbation has resolved. (3) Chronic alcoholism Is this a current diagnosis for this admission?: Yes Plan: Suspect that his cardiomyopathy is due to his alcoholism. He is getting vitamin supplementation. Monitoring for withdrawal. Have strongly encouraged abstinence. - Time Time Spent with patient: 15-24 minutes - Plan Summary Plan Summary: Had plan to discharge him home today Dr. Chavis wanted him kept overnight, because there are some medication arrangements that still need to be made for him that are supposed to take place tomorrow.
[2019-02-08] MEDS: METOPROLOL SUCCINATE 50 MG TAB.SR.24H PO SCH (21:59)
--- NOTE | 2019-02-08 22:41 | Progress Note ---
Provider Note Provider Note: CARDIOLOGY PROGRESS NOTE by Dr. Nikki Chavis. On 02/09/2019. OBJECTIVE: The patient's heart rate is about 110 bpm still in atrial flutter. The patient denies any chest pain or discomfort. There is no shortness of breath. There is no PND orthopnea. There is no bleeding on Eliquis. There is no TIA CVA symptoms. He denies any shortness of breath cough or sputum production. There is no PND orthopnea. There is no leg edema. There is no ventricular arrhythmia seen on the monitor. The patient was seen prior to during and after the stress test. The patient underwent uneventful IV Lexiscan Cardiolite stress test PHYSICAL EXAMINATION: The patient is well-built and well-nourished. He is in no acute distress. Selected Entries 02/08/19 02/08/19 15:00 15:21 Temperature 98.4 F Temperature Oral Source Heart Rate ( 102 Monitors) Respiratory 14 Rate Blood Pressure 100/72 Blood Pressure 81 Mean BP Location Right Arm BP Position Sitting O2 Sat by Pulse 100 Oximetry Oxygen Delivery Room Air Method HEAD: Is atraumatic normocephalic. EYES: Pupils equal round regular reactive to light accommodation. Extraocular movements are normal. There is no clinical pallor. There is no scleral icterus. EARS: Tympanic memories are intact. External auditory canals are clear. NOSE: There is no deviated nasal septum. There is no inflammation nasal mucous membrane. MOUTH: Mucous membranes of mouth are moist tongue is moist there is no ulcers there is no bleeding from the gums. THROAT: There is no redness of the oropharynx. There is no exudates. SKIN: There is no skin rashes or skin lesions. There is no particular ecchymosis NECK: Is supple. There is no JVD. Carotids are equal there is no bruits. There is no lymphadenopathy. There is no goiter. There is no accessory muscle respiration use. Trachea central. LUNGS: There is no rhonchi or wheezing. There is bibasilar rales of CHF. On palpation there is no chest wall tenderness. HEART: S1-S2 is heard. S1 is of variable intensity. There is no S3 gallop. There is systolic murmur left sternal border and the apex there is no rub. ABDOMEN: Soft. There is no hepatosplenomegaly. Bowel sounds are well heard. There is no tender areas masses. Extremities: Femorals are well fe lt. Leg pulses well felt. There is trace pedal edema. There is some early changes of chronic venous stasis dermatitis. There is no DVT or cellulitis. There is no cyanosis or clubbing. 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 PSYCHIATRIC: The patient's judgment insight are intact his affect is normal. IV Lexiscan Cardiolite stress test shows no evidence of ischemia or CO/scar. This has been discussed the patient, and with attending physician. IMPRESSION/RECOMMENDATION: 1. Atrial flutter with rapid ventricular response. Ventricular response is better but still not optimal. We will continue the patient's digoxin, the beta- tyrell and the patient is in the PJ inhibitor. Will decrease the Lasix to 20 mg p.o. daily. Note since the patient has difficulty getting medications. He has a free 30-day supply for Xarelto. Will continue the patient on Eliquis today. From tomorrow we will start the patient on Xarelto. 2. Congestive heart failure by exam and by CT scan of the chest. Most likely secondary to atrial flutter with rapid ventricular response, the patient with moderately reduced LV ejection fraction. 3. CARDIOMYOPATHY with moderately reduced LV ejection fraction. Continue beta- tyrell PJ inhibitor and Lasix. Note that the patient IV Lexiscan Cardiolite stress test was negative for ischemia or CO. The differential diagnosis of this cardiomyopathy etiology is either alcohol induced versus tachycardia induced cardiomyopathy versus a combination of both also there is element of probably untreated latent hypertension. 4. HYPERTENSION: Most likely patient has latent hypertension. As mentioned earlier we will increase the patient's beta tyrell, and also as mentioned earlier we will increase the patient's lisinopril. 5. Abnormal liver function tests: Most likely secondary to patient's alcohol use. 6. History of tobacco and alcohol use. Patient counseled to stop both these. Ill effects explained, and tobacco cessation's counseling already done yesterday for 3 minutes. Medications reviewed. IV Lexiscan Cardiolite stress test was discussed with the patient. Management plan discussed with attending physician on the case and also with the patient. Medical decision making is of high complexity. 40 minutes spent on this patient, with more than 50% time spent in direct patient care.
[2019-02-09] MEDS: DIPHENHYDRAMINE HCL 25 MG CAPSULE PO PRN (02:54)
[2019-02-09] MEDS: PANTOPRAZOLE SODIUM 20 MG TABLET.DR PO SCH (06:42)
[2019-02-09] MEDS ORDERED: RIVAROXABAN 10 MG TABLET PO SCH (10:00)
[2019-02-09] MEDS: DIGOXIN 0.25 MG TABLET PO SCH (10:08)
[2019-02-09] MEDS: FUROSEMIDE 20 MG TABLET PO SCH (10:08)
[2019-02-09] MEDS: LISINOPRIL 10 MG TABLET PO SCH (10:08)
[2019-02-09] MEDS: METOPROLOL SUCCINATE 50 MG TAB.SR.24H PO SCH (10:09)
[2019-02-09] MEDS: DOCUSATE SODIUM 100 MG CAPSULE PO SCH (10:09)
[2019-02-09] MEDS: NICOTINE 7 MG/24 HR PATCH.TD24 TD SCH (10:09)
[2019-02-09] MEDS ORDERED: HYDROXYZINE HCL 10 MG TABLET PO ONE (10:22)
[2019-02-09 12:09] VITALS: BP 105/73
--- NOTE | 2019-02-09 15:09 | DISCHARGE SUMMARY E ---
Discharge Summary NAME: LOU HEADLEY : 1960 AGE: 58Y ADMITTED: 02/01/2019 DISCHARGED: 02/09/2019 CODE STATUS: Full code. PRIMARY CARE PROVIDER: The patient will be referred to [facility]. CONSULTING ACCOUNTS PAYABLE LEAD: Nikki Chavis M.D. DISCHARGE DIAGNOSES: 1. Atrial flutter. 2. Acute on chronic systolic congestive heart failure, exacerbated by #1. 3. Alcohol dependency continuous. 4. Alcohol cardiomyopathy. 5. Abnormal LFTs secondary to alcohol. DISCHARGE MEDICATIONS: 1. Thiamine 100 mg p.o. daily, 30 tablets with zero refills. 2. Xarelto 20 mg p.o. daily, 30 tablets with zero refills. 3. Metoprolol 100 mg p.o. q.12 hours, 60 tablets with zero refills. 4. Lisinopril 20 mg p.o. b.i.d., 60 tablets with zero refills. 5. Lasix 20 mg p.o. b.i.d., 60 tablets with zero refills. 6. Digoxin 0.25 mg p.o. daily, 30 tablets with zero refills. 7. Melatonin 6 mg p.o. q. hour of sleep. ACTIVITY: As tolerated. DIET: Heart healthy. Abstain from alcohol. CONDITION: Fair. DIAGNOSTICS: Lab values are as follows - hematology obtained on 02/04/2019; WBC is 7.9, hemoglobin is 13.7, hematocrit 38.9, platelet count 333,000. Sed rate is 22. Chemistry obtained on 02/04/2019; sodium is 135, potassium 4.3, chloride is 104, carbon dioxide 26, BUN 11, creatinine is 0.82, glucose 96. A1c is 4.9. Calcium is 9.6, magnesium 1.8, bilirubin is 0.8, AST 35, ALT 95, alk-phos 254. CK 41, troponin 0.018. BNP is 2480. Total protein 6.3, albumin 3.4. Triglycerides 86, cholesterol is 133, LDL 73, VLDL 16, HDL is 57. Lipase is 129. TSH 1.94, free T4 is 1.31. Toxicology obtained on 02/05/2019 is bojorquez negative. Serology obtained on 02/01/2019; hepatitis A, B, and C are negative. Chest x-ray obtained on 02/01/2019 revealed an enlarged heart without evidence of failure. Chest and abdominal CTA obtained on 02/01/2019 revealed negative examination of PE with scattered ground glass opacities with mild pulmonary edema. Abdominal ultrasound obtained on 02/02/2019 revealed small right pleural effusion with moderate hepatic steatosis. Chest x-ray obtained on 02/05/2019 revealed bibasilar atelectasis. PHYSICAL EXAMINATION: GENERAL: On examination the patient is a well-developed, well-nourished, 58-year-old male who is awake, alert, and oriented to person, place, time, and situation. He is verbal, conversational. Does not appear to be in any acute distress. VITAL SIGNS: Temperature is 98.1, pulse 104, respirations 18, blood pressure is 105/73, oxygen saturation is 100% on room air. SKIN: Warm and dry. No rash. He is not diaphoretic. HEENT: Pupils are reactive. Conjunctivae is pink. No JVP. CARDIOVASCULAR SYSTEM: Heart is irregular. CHEST: Clear/unlabored. ABDOMEN: Soft, nontender. EXTREMITIES: No clubbing, cyanosis, or edema. PSYCHIATRIC: Appropriate affect, pleasant mood. HISTORY OF PRESENT ILLNESS: The patient is a 58-year-old male with a past medical history of alcohol dependency. The patient presented to the emergency department with a chief complaint of flu like symptoms. The patient stated that he noticed heart palpitations as well as overall weakness. The patient denied chest pain, no dizziness or syncopal episodes. The patient denied any known history of cardiac disease, renal failure, liver disease but the patient noted that he would have a lower extremity edema for approximately a year. The patient freely admitted to drinking and smoking, but denied any actual evidence of alcohol withdrawal. While in the ED the patient was found to have a heart rate of 220. He received adenosine and showed a rhythm of underlying A-flutter. The patient was started on a Cardizem drip with improvement of his heart rate, but he did have persistent flutter with a 2:1 block and the patient was referred to the hospitalist for admission and management. HOSPITAL COURSE: The patient was admitted to [facility]. The patient was seen and evaluated by the cardiology service. The patient underwent Cardiolite stress test and findings were not suggestive of any area of reversible ischemia. The patient did have some difficulties with obtaining rate control and eventually this was obtained with digoxin as well as the metoprolol. The patient's plan of care has been complicated by his lack of insurance. The patient has been provided 30 days of Xarelto and will establish care at the [facility]. The patient was also noted to be hypertensive, but blood pressure was much better controlled with the addition of PJ inhibitor. The patient was started on thiamine for supplementation and has received counseling regarding tobacco and alcohol. DISPOSITION: The patient is to follow with the [facility] within 1 to 2 weeks for hospital follow up. TIME SPENT: On this discharge including assessment and plan, physical examination, patient education, review of records is 25 minutes. DICTATING PHYSICIAN: DARYA ERWIN NP [id number] PHY#: [id number] ID: [id number] JOB#: [id number] ACCT: [id number] cc:VIVIANE GARCIA M.D. DARYA ERWIN NP >
--- NOTE | 2019-02-09 23:10 | DRAGON STRESS TEST REPORT ---
Intravenous Lexiscan Cardiolite stress test using single photon emmision computerized tomography. Date of procedure: 02/08/2019 Ordering Provider: Dr. Nikki Chavis. Patient's status: Inpatient Indication: Atrial flutter, and cardiomyopathy. Coronary risk factors: Age. Resting EKG: Atrial flutter Stress EKG: No changes of ischemia. The patient had no chest pain or discomfort, and there were no arrhythmias seen. Reason for termination: Protocol. Conclusions: Normal EKG and hemodynamic response to IV Lexiscan. Nuclear data: At rest the patient was given 12.97 millicuries of technetium 99m sestamibi injected intravenously. As per protocol rest non gated SPECT images were obtained. Subsequently the patient was given intravenous Lexiscan at a dose of 0.4 mg in 5 mL intravenously, followed by flush with normal saline. Subsequently the stress dose of 36.7 millicuries of technetium 99m sestamibi was injected intravenously. As per protocol stress gated images were obtained. Nuclear interpretation: Review of images showed that all segments of the myocardium had normal perfusion at rest, and normal perfusion post stress with IV Lexiscan. All segments of the myocardium had normal motion, contraction, and thickening by gated study. T. I D. ratio was normal at 0.99. There is no transient ischemic dilatation of the left ventricle. Computer read rest, and stress left ventricular ejection fraction were 44 %, and 45%.. Surgery was dilated, and there is moderate LV LV systolic dysfunction.. Conclusion: 1. There is no scintigraphic evidence of Lexiscan induced myocardial ischemia. 2. There is no scintigraphic evidence of myocardial infarction/scar. 3. There is evidence of dilated cardiomyopathy with moderately reduced LV ejection fraction. Recommendations: Aggressive risk factor modification, and treating the underlying co- morbidities. Aggressive treatment of cardiomyopathy. MTDD
== END 2019-02-09 13:14 | disposition home or self-care (01) | DRG 308 ==
LOC: ER 10:24 → EH 15:22 → 3S 18:22
PROVIDERS: ADMIT Internal Medicine; ATTEND Internal Medicine
DX: I48.92 Unspecified atrial flutter (principal); I50.23 Acute on chronic systolic (congestive) heart failure; I42.6 Alcoholic cardiomyopathy; F17.200 Nicotine dependence, unspecified, uncomplicated; F10.20 Alcohol dependence, uncomplicated; R94.5 Abnormal results of liver function studies; Z79.899 Other long term (current) drug therapy; Z59.7 Insufficient social insurance and welfare support
CPT/HCPCS: 36415; 71045; 71275; 76705; 78452; 80053; 80061; 80074; 80162; 80307; 82550; 82553; 82962; 83036; 83690; 83735; 83880; 84132; 84439; 84443; 84484; 85025; 85027; 85379; 85652; 93005; 93010; 93017; 93306; 93976; 96361; 96374; 96375; 99291; A9500; J0153; J1160; J1644; J1650; J1940; J2785; J3360; J3411; J3475; J3480; J3490; J7030; Q9969

== ENCOUNTER 2019-02-28 11:22 | Emergency (ER) | payer OTHER ==
[2019-02-28] MEDS ORDERED: LIDOCAINE 1%/EPINEPHRINE INJ 20 ML VIAL INJ ONE (13:13)
[2019-02-28] MEDS ORDERED: DIPH/PERTUSS(ACELL)/TETANUS VAC/PF 0.5 ML SYR (>=10YO) IM ONE (13:14)
--- NOTE | 2019-02-28 13:18 | ER Document Report ---
ED Wound - General Chief Complaint: Laceration Stated Complaint: HAND LACERATION Time Seen by Provider: 02/28/19 12:51 Notes: 58-year-old male with atrial flutter on Xarelto presents to the emergency department for laceration of his right hand. He cut it while working on a dryer and cut a piece of sheet metal. He said the metal was clean. Wound is on the volar aspect of his right wrist just proximal to the thenar eminence. Patient states that he bled profusely initially and bandaged himself up with some Covan and paper towels. Bleeding is overall controlled. Does not room when his last tetanus shot was. TRAVEL OUTSIDE OF THE [place] IN LAST 30 DAYS: No - Related Data Allergies/Adverse Reactions: No Known Allergies Allergy (Verified 02/28/19 11:24) Past Medical History - Social History Smoking Status: Current Every Day Smoker Chew tobacco use (# tins/day): No Frequency of alcohol use: Occasional Drug Abuse: None Family History: Reviewed & Not Pertinent Patient has suicidal ideation: No Patient has homicidal ideation: No Renal/ Medical History: Denies: Hx Peritoneal Dialysis Review of Systems - Review of Systems Constitutional: No symptoms reported EENT: No symptoms reported Cardiovascular: No symptoms reported Respiratory: No symptoms reported Gastrointestinal: No symptoms reported Genitourinary: No symptoms reported Male Genitourinary: No symptoms reported Musculoskeletal: No symptoms reported Skin: See HPI Hematologic/Lymphatic: No symptoms reported Neurological/Psychological: No symptoms reported Physical Exam - Vital signs Vitals: Temp Pulse Resp BP Pulse Ox 98.0 F 64 16 124/78 98 02/28/19 11:26 02/28/19 11:26 02/28/19 11:26 02/28/19 11:26 02/28/19 11:26 - Notes Notes: PHYSICAL EXAMINATION: Reviewed vital signs and charting by RN GENERAL: Alert, interacts well. No acute distress. HEAD: Normocephalic, atraumatic. EYES: Pupils equal and round. Extraocular movements intact. NECK: Full range of motion. Trachea midline. EXTREMITIES: Moves all 4 extremities spontaneously. No edema, No cyanosis. Normal distal neurovascular exam BACK: No CVAT NEUROLOGIC: Oriented and appropriate. Normal speech. PSYCH: Normal affect, normal mood. SKIN: Warm, dry, normal turgor. 2 cm linear laceration on the volar aspect of the right lateral wrist in the crease just proximal to the thenar eminence. Mild oozing at this time bleeding overall controlled. Course - Re-evaluation Re-evalutation: 02/28/19 13:17 Well-appearing. Last tetanus unknown so patient will receive tetanus booster. Plan to perform a laceration repair 02/28/19 13:52 Laceration repair performed. 4-0 Ethilon used, 6 sutures placed, patient tolerated procedure well, bleeding controlled. Patient will receive tetanus booster. Stable for discharge with good instructions. - Vital Signs Vital signs: Temp Pulse Resp BP Pulse Ox 98.0 F 64 16 124/78 98 02/28/19 11:26 02/28/19 11:26 02/28/19 11:26 02/28/19 11:26 02/28/19 11:26 Procedures - Laceration/Wound Repair Right Volar Wrist Wound length (cm): 3 Wound's Depth, Shape: Superficial, Linear Laceration pre-procedure: Sterile PPE donned Anesthetic type: 1% Lidocaine w/epi Wound explored: Clean Wound Debrided: Minimal Suture Size/Type: 4:0, Ethilon Layer Closure?: No Post-procedure wound care: Sterile dressing applied Discharge - Discharge Clinical Impression: Laceration Condition: Good Disposition: HOME, SELF-CARE Instructions: Antibiotic Ointment Protection ([facility]), Laceration Care ([facility]), Tetanus Immunization Given ([facility]), Soap Cleansing ([facility]) Additional Instructions: Please return to your primary doctor, the ED, or an urgent care in 7 days for suture removal. Return immediately if you develop spreading redness around the wound, pus from the wound, worsening pain, or a fever of >101. Keep the area clean and dry. Wash gently with soap and water twice daily and cover with antibiotic ointment.
[2019-02-28 14:06] VITALS: BP 126/73
== END 2019-02-28 14:07 | disposition home or self-care (01) ==
LOC: ER 11:22
DX: S61.511A Laceration without foreign body of right wrist, initial encounter (principal); W45.8XXA Other foreign body or object entering through skin, initial encounter; Y93.89 Activity, other specified; I48.92 Unspecified atrial flutter; Z79.01 Long term (current) use of anticoagulants; F17.200 Nicotine dependence, unspecified, uncomplicated; Z23 Encounter for immunization
CPT/HCPCS: 99282; 90471; 90715; 12002; J3490

== ENCOUNTER 2019-03-07 10:48 | Emergency (ER) | payer OTHER ==
[2019-03-07 10:51] VITALS: BP 118/65
--- NOTE | 2019-03-07 11:13 | ER Document Report ---
HPI - HPI Patient complains to provider of: Suture removal Time Seen by Provider: 03/07/19 11:02 Onset/Duration: Better Pain Level: Denies Context: She presents today for suture removal to a wrist laceration. Patient states injury occurred 7 days ago. Patient denies any problems with the injury. Associated Symptoms: None Exacerbated by: Denies Relieved by: Denies Similar symptoms previously: No Recently seen / treated by doctor: Yes - ROS ROS below otherwise negative: Yes Systems Reviewed and Negative: Yes All other systems reviewed and negative - CONSTITUTIONAL Constitutional: DENIES: Fever, Chills - NEURO Neurology: DENIES: Weakness - GASTROINTESTINAL Gastrointestinal: DENIES: Nausea - MUSCULOSKELETAL Musculoskeletal: DENIES: Extremity pain - DERM Skin Color: Normal Skin Problems: Laceration Past Medical History - General Information source: Patient - Social History Smoking Status: Current Every Day Smoker Smoking Education Provided: Yes Frequency of alcohol use: None Drug Abuse: None Family History: Reviewed & Not Pertinent - Past Medical History Cardiac Medical History: Reports: Hx Atrial Fibrillation, Hx Hypertension Renal/ Medical History: Denies: Hx Peritoneal Dialysis Surgical Hx: Negative Vertical Provider Document - CONSTITUTIONAL Agree With Documented VS: Yes Exam Limitations: No Limitations General Appearance: WD/WN, No Apparent Distress - INFECTION CONTROL TRAVEL OUTSIDE OF THE [place] IN LAST 30 DAYS: No - HEENT HEENT: Atraumatic, Normocephalic - NECK Neck: Normal Inspection - RESPIRATORY Respiratory: No Respiratory Distress - CARDIOVASCULAR Pulses: Normal: Radial - MUSCULOSKELETAL/EXTREMETIES Musculoskeletal/Extremeties: MAEW, FROM - NEURO Level of Consciousness: Awake, Alert, Appropriate Motor/Sensory: No Motor Deficit - DERM Integumentary: Warm, Dry, Laceration - r wrist lac. Course - Re-evaluation Re-evalutation: 03/07/19 11:11 2 of patient's 6 sutures were removed and wound had the appearance as though it is starting to dehisce. Decision was made to leave the remaining sutures in place for an additional 5 days and Steri-Strip over the area that the sutures were removed. - Vital Signs Vital signs: Temp Pulse Resp BP Pulse Ox 99.1 F 79 18 118/65 96 03/07/19 10:49 03/07/19 10:49 03/07/19 10:49 03/07/19 10:49 03/07/19 10:49 Discharge - Discharge Clinical Impression: Visit for wound check Condition: Stable Disposition: HOME, SELF-CARE Instructions: Laceration Care ([facility]), Care of Steri-Strip Closure ([facility]) Additional Instructions: Return immediately for any new or worsening symptoms Followup with your primary care provider, call tomorrow to make a followup appointment Return in 5 days for suture removal Forms: Smoking Cessation Education
== END 2019-03-07 11:24 | disposition home or self-care (01) ==
LOC: ER 10:48
DX: S61.511D Laceration without foreign body of right wrist, subsequent encounter (principal); W22.8XXD Striking against or struck by other objects, subsequent encounter; F17.200 Nicotine dependence, unspecified, uncomplicated; I10 Essential (primary) hypertension

== ENCOUNTER 2019-03-15 15:38 | Emergency (ER) | payer OTHER ==
[2019-03-15 15:52] VITALS: BP 120/63
--- NOTE | 2019-03-15 16:10 | ER Document Report ---
HPI - HPI Time Seen by Provider: 03/15/19 16:06 Pain Level: Denies Notes: Patient is a 58-year-old male who presents emergency department for suture removal status post placement 15 days ago here in the emergency department for a right wrist laceration. Patient had 6 sutures placed at that time. He returned 7 days later and had 2 sutures removed. They left for in place for removal at a later time for continued healing. Patient states he has not had any redness, separation of the wound, fever, or purulence. No concerns or complaints. Denies drug allergies. Denies any headache, fever, neck pain, URI, sore throat, chest pain, palpitations, syncope, cough, shortness of breath, wheeze, dyspnea, abdominal pain, nausea/vomiting/diarrhea, urinary retention, dysuria, hematuria, or rash. - ROS Systems Reviewed and Negative: Yes All other systems reviewed and negative Past Medical History - Social History Smoking Status: Current Every Day Smoker Family History: Reviewed & Not Pertinent - Past Medical History Cardiac Medical History: Reports: Hx Atrial Fibrillation, Hx Congestive Heart F ailure, Hx Hypertension Renal/ Medical History: Denies: Hx Peritoneal Dialysis Past Surgical History: Reports: Hx Orthopedic Surgery - RIGHT FINGER Vertical Provider Document - CONSTITUTIONAL Agree With Documented VS: Yes Notes: PHYSICAL EXAMINATION: GENERAL: Well-appearing, well-nourished and in no acute distress. LUNGS: Breath sounds clear to auscultation bilaterally and equal. No wheezes rales or rhonchi. HEART: Regular rate and rhythm without murmurs, rubs, gallops. ABDOMEN: Soft, nontender, nondistended abdomen. No guarding, no rebound. No masses appreciated. Normal bowel sounds present. No CVA tenderness bilaterally. Musculoskeletal: Rt wrist: FROM to passive/active. Strength 5+/5. N/V intact distal. Non-tender. Extremities: No cyanosis, clubbing, or edema b/l. Peripheral pulses 2+. Capillary refill less than 3 seconds. NEUROLOGICAL: Normal speech, normal gait. Normal sensory, motor exams PSYCH: Normal mood, normal affect. SKIN: remaining 4 sutures removed. wound appears well-healed w/o any erythema, warmth, purulence, induration, streaks, or dehiscence. - INFECTION CONTROL TRAVEL OUTSIDE OF THE [place] IN LAST 30 DAYS: No Course - Re-evaluation Re-evalutation: 03/15/19 16:09 Patient is an afebrile, well-hydrated, 58-year-old male who presents for suture removal. Vitals are acceptable without significant tachycardia, tachypnea, or hypoxia. PE is otherwise unremarkable for any evidence of infection or wound dehiscence. For remaining sutures removed successfully without any complications. Wound instructions reviewed. Patient to recheck with his PCM in 3 to 5 days or as needed. Return to the ED with any other worsening/concerning symptoms. Patient is in agreement. - Vital Signs Vital signs: Temp Pulse Resp BP Pulse Ox 99.6 F 100 16 120/63 98 03/15/19 15:49 03/15/19 15:49 03/15/19 15:49 03/15/19 15:49 03/15/19 15:49 Discharge - Discharge Clinical Impression: Encounter for removal of sutures Condition: Stable Disposition: HOME, SELF-CARE Instructions: Suture Removal Additional Instructions: Keep the skin clean Wash with soap and water Tylenol/ibuprofen if needed Take medication as directed Monitor for any worsening symptoms Recheck with your PCM in 3-5 days Return to the ED with any worsening symptoms and/or development of fever, headache, chest pain, palpitations, syncope, shortness of breath, trouble breathing, abdominal pain, n/v/d, abscess, purulent discharge, red streaks, worsening swelling, or other worsening symptoms that are concerning to you. Forms: Smoking Cessation Education Referrals: Wound Care [Provider Group] - Follow up as needed
== END 2019-03-15 16:22 | disposition home or self-care (01) ==
LOC: ER 15:38
DX: S61.511D Laceration without foreign body of right wrist, subsequent encounter (principal); X58.XXXD Exposure to other specified factors, subsequent encounter

== ENCOUNTER → 2019-04-05 | Outpatient (CLI) | payer OTHER ==
[2019-04-05 09:11] LABS: BLOOD UREA NITROGEN 27 mg/dL (7-20); CALCIUM 9.8 mg/dL (8.4-10.2); CHLORIDE 101 mmol/L (98-107); GLUCOSE 105 mg/dL (75-110); POTASSIUM 4.9 mmol/L (3.6-5.0)
[2019-04-05 09:12] LABS: ANION GAP 12 (5-19); CARBON DIOXIDE 26 mmol/L (22-30); DIGOXIN 0.63 ng/mL (0.8-2.0); SODIUM 138.9 mmol/L (137-145)
== END ==
LOC: CCC 08:09
DX: I48.91 Unspecified atrial fibrillation (principal)
CPT/HCPCS: 36415; 80048; 80162; 83735

== ENCOUNTER 2019-09-16 10:33 | Emergency (ER) | payer OTHER ==
--- NOTE | 2019-09-16 11:05 | ER Document Report ---
ED Medical Screen (RME) - General Chief Complaint: Mouth Problem Stated Complaint: MOUTH SWELLING Time Seen by Provider: 09/16/19 10:54 Primary Care Provider: [facility] [Primary Care Provider] - Follow up as needed Mode of Arrival: Ambulatory Information source: Patient Notes: Patient is an otherwise healthy 59-year-old male presenting with left-sided facial swelling that began approximately 2 hours prior to arrival. Patient reports swelling is rapidly worsening. He denies any difficulty swallowing or difficulty talking. Patient speaking in full complete sentences. He denies any new medications but he does take lisinopril. Patient states he has never had a reaction like this in the past. I have greeted and performed a rapid initial assessment of this patient. A comprehensive ED assessment and evaluation of the patient, analysis of test results and completion of the medical decision making process will be conducted by additional ED providers. I have specifically instructed the patient or family members with the patient to immediately return to any nursing staff should anything change in the patient's condition or with their chief complaint. This medical record was dictated with voice recognizing software. There may be grammatical, syntax errors that are unintended. TRAVEL OUTSIDE OF THE [place] IN LAST 30 DAYS: No - Related Data Allergies/Adverse Reactions: No Known Allergies Allergy (Verified 03/15/19 15:42) Home Medications: lisinopril BID, metoprolol BID, digoxin 250mg daily, xarelto 20mg daily Past Medical History - Social History Chew tobacco use (# tins/day): No Frequency of alcohol use: Occasional Drug Abuse: None - Past Medical History Cardiac Medical History: Reports: Hx Atrial Fibrillation, Hx Congestive Heart Failure, Hx Hypertension Renal/ Medical History: Denies: Hx Peritoneal Dialysis Past Surgical History: Reports: Hx Orthopedic Surgery - RIGHT FINGER Physical Exam - Vital signs Vitals: Temp Pulse Resp BP Pulse Ox 98.9 F 80 18 127/67 H 97 09/16/19 10:42 09/16/19 10:42 09/16/19 10:42 09/16/19 10:42 09/16/19 10:42 Course - Vital Signs Vital signs: Temp Pulse Resp BP Pulse Ox 98.9 F 80 18 127/67 H 97 09/16/19 10:42 09/16/19 10:42 09/16/19 10:42 09/16/19 10:42 09/16/19 10:42 Doctor's Discharge - Discharge Referrals: [facility] [Primary Care Provider] - Follow up as needed
[2019-09-16] MEDS ORDERED: DIPHENHYDRAMINE HCL 50 MG/ML VIAL IV ONE (11:20)
[2019-09-16] MEDS ORDERED: FAMOTIDINE INJ/PF 20 MG/2 ML SDV IV ONE (11:20)
[2019-09-16 12:08] LABS: ABSOLUTE BASOPHILS # (AUTO) 0.1 10^3/uL (0.0-0.2); ABSOLUTE EOSINOPHILS # (AUTO) 0.2 10^3/uL (0.0-0.6); ABSOLUTE LYMPHOCYTES (AUTO) 1.2 10^3/uL (0.5-4.7); ABSOLUTE MONOCYTES (AUTO) 0.6 10^3/uL (0.1-1.4); ABSOLUTE NEUT (AUTO) 4.7 10^3/uL (1.7-8.2); BASOPHILS % (AUTO) 0.9 % (0-2); EOSINOPHILS % (AUTO) 3.2 % (0-6); HEMATOCRIT 41.3 % (37.9-51.0); HEMOGLOBIN 14.4 g/dL (13.5-17.0); LYMPHOCYTES % (AUTO) 17.1 % (13-45); MEAN CORPUSCULAR HEMOGLOBIN 35.6 pg (27.0-33.4); MEAN CORPUSCULAR HGB CONC 34.8 g/dL (32.0-36.0); MEAN CORPUSCULAR VOLUME 102 fl (80-97); MONOCYTES % (AUTO) 9.3 % (3-13); PLATELET COUNT 293 10^3/uL (150-450); RED BLOOD COUNT 4.04 10^6/uL (4.35-5.55); RED CELL DISTRIBUTION WIDTH 13.4 % (11.5-14.0); SEGMENTED NEUTROPHILS % (AUTO) 69.5 % (42-78); TOTAL CELLS COUNTED % (AUTO) 100 %; WHITE BLOOD COUNT 6.8 10^3/uL (4.0-10.5)
--- NOTE | 2019-09-16 13:42 | ER Document Report ---
Entered by NIKHIL DEJESUS SCRIBE 09/16/19 1120 Acting as scribe for:GHADA TAO MD ED Oral Problem - General Chief Complaint: Mouth Problem Stated Complaint: MOUTH SWELLING Time Seen by Provider: 09/16/19 10:54 Primary Care Provider: [facility] [Primary Care Provider] - Follow up as needed Mode of Arrival: Ambulatory Information source: Patient Notes: 59 year old male presents to the emergency department today with complaints of left sided facial swelling. Patient states he woke up this morning at 630 am and the swelling was not present. He states that he was doing dishes at around 800 am when he first noticed this swelling. Patient denies any new medications. Patient does take Lisinopril daily and has never had angioedema in the past. Patient denies any pain in this area. He states it does itch. TRAVEL OUTSIDE OF THE [place] IN LAST 30 DAYS: No - Related Data Allergies/Adverse Reactions: No Known Allergies Allergy (Verified 03/15/19 15:42) Home Medications: lisinopril BID, metoprolol BID, digoxin 250mg daily, xarelto 20mg daily Past Medical History - General Information source: Patient - Social History Smoking Status: Current Every Day Smoker Cigarette use (# per day): Yes Chew tobacco use (# tins/day): No Frequency of alcohol use: Occasional Drug Abuse: None Lives with: Family Family History: Reviewed & Not Pertinent Patient has suicidal ideation: No Patient has homicidal ideation: No - Past Medical History Cardiac Medical History: Reports: Hx Atrial Fibrillation, Hx Congestive Heart Failure, Hx Hypertension Past Surgical History: Reports: Hx Orthopedic Surgery - RIGHT FINGER Review of Systems - Review of Systems Constitutional: No symptoms reported EENT: See HPI, Mouth swelling. denies: Throat pain, Difficulty swallowing Cardiovascular: No symptoms reported Respiratory: No symptoms reported Gastrointestinal: No symptoms reported Genitourinary: No symptoms reported Male Genitourinary: No symptoms reported Musculoskeletal: No symptoms reported Skin: No symptoms reported Hematologic/Lymphatic: No symptoms reported Neurological/Psychological: No symptoms reported -: Yes All other systems reviewed and negative Physical Exam - Vital signs Vitals: Temp Pulse Resp BP Pulse Ox 98.9 F 80 18 127/67 H 97 09/16/19 10:42 09/16/19 10:42 09/16/19 10:42 09/16/19 10:42 09/16/19 10:42 - Notes Notes: Physical Exam: General: Alert, appears well. HEENT: Normocephalic. Atraumatic. PERRL. Extraocular movements intact. Oropharynx clear. Swelling to the left side of the face, near corner of the mouth just above the mandible. Extends minimally into the left upper and lower lip. Slightly firm, no erythema or tenderness. Dental caries with filling. Tongue is normal. No posterior oropharynx. All swelling anterior to parotid gland. No gingival abscess. Neck: Supple. Non-tender. Respiratory: No respiratory distress. Clear and equal breath sounds bilaterally. Cardiovascular: Regular rate and rhythm. Abdominal: Normal Inspection. Non-tender. No distension. Normal Bowel Sounds. Back: No gross abnormalities. Extremities: Moves all four extremities. Upper extremities: Normal inspection. Normal ROM. Lower extremities: Normal inspection. No edema. Normal ROM. Neurological: Normal cognition. AAOx4. Normal speech. Psychological: Normal affect. Normal Mood. Skin: Warm. Dry. Normal color. Course - Re-evaluation Re-evalutation: 09/16/19 13:58 At this time the patient does not show any progression of the swelling, it may be slightly less. There is no tenderness or erythema noted. He mentions that he did notice a swelling started about 30 minutes after taking his lisinopril dose this morning. - Vital Signs Vital signs: Temp Pulse Resp BP Pulse Ox 98.9 F 80 21 H 126/77 H 97 09/16/19 10:42 09/16/19 10:42 09/16/19 13:17 09/16/19 13:17 09/16/19 13:17 - Laboratory Result Diagrams: 09/16/19 11:50 09/16/19 12:52 Laboratory results interpreted by me: 09/16/19 09/16/19 11:50 12:52 RBC 4.04 L MCV 102 H MCH 35.6 H Sodium 135.6 L Potassium 5.2 H BUN 27 H Discharge - Discharge Clinical Impression: Swelling of left side of face Condition: Stable Disposition: HOME, SELF-CARE Additional Instructions: Angioedema Angioedema is an allergic swelling of the soft tissues of the body. The lips and mouth are most commonly involved. Medicication allergy is a common cause, especially PJ inhibitor medicine (used for blood pressure control). Food, even something you've eaten frequently, can cause angioedema. In many cases it's not obvious what caused the swelling. Acute treatment may include adrenalin and antihistamines. If the cause is known, you must avoid this food or medicine in the future. If angioedema affects your air passages, it can be life-threatening. Return at once if you develop shortness of breath, faintness, severe pain, inability to swallow, or if swelling worsens. At this time it is difficult to tell if the swelling you are experiencing is due to angioedema caused by the lisinopril. The swelling might be due to an infectious cause, but clinically you do not appear to have an infection at this time. For now you should stop taking lisinopril, we will place you on another blood pressure medication called hydralazine. Follow-up with your primary care provider to evaluate how the hydralazine is controlling your blood pressure and to discuss longer-term treatment options. Return to the emergency room if the swelling in your face gets worse, you began running fevers, or the swollen area becomes painful. RETURN TO THE EMERGENCY ROOM IF ANY NEW OR WORSENING SYMPTOMS. Prescriptions: Hydralazine HCl [Apresoline 25 mg Tablet] 25 mg PO Q8 #60 tablet Referrals: [facility] [Primary Care Provider] - Follow up in 1 week Scribe Attestation: 09/16/19 13:59 I personally performed the services described in the documentation, reviewed and edited the documentation which was dictated to the scribe in my presence, and it accurately records my words and actions. I personally performed the services described in the documentation, reviewed and edited the documentation which was dictated to the scribe in my presence, and it accurately records my words and actions.
[2019-09-16 13:56] LABS: ALBUMIN 4.4 g/dL (3.5-5.0); ALKALINE PHOSPHATASE 50 U/L (38-126); ANION GAP 8 (5-19); ASPARTATE AMINO TRANSFERASE 30 U/L (17-59); BILIRUBIN,DIRECT 0.1 mg/dL (0.0-0.4); BILIRUBIN,TOTAL 0.6 mg/dL (0.2-1.3); BLOOD UREA NITROGEN 27 mg/dL (7-20); CALCIUM 9.8 mg/dL (8.4-10.2); CARBON DIOXIDE 28 mmol/L (22-30); CHLORIDE 100 mmol/L (98-107); GLUCOSE 94 mg/dL (75-110); POTASSIUM 5.2 mmol/L (3.6-5.0); TOTAL PROTEIN 7.4 g/dL (6.3-8.2)
[2019-09-16 15:23] VITALS: BP 129/73
== END 2019-09-16 15:33 | disposition home or self-care (01) ==
LOC: ER 10:33
DX: R22.0 Localized swelling, mass and lump, head (principal); L29.9 Pruritus, unspecified; I11.0 Hypertensive heart disease with heart failure; I50.9 Heart failure, unspecified; Z79.899 Other long term (current) drug therapy; I48.91 Unspecified atrial fibrillation; Z79.02 Long term (current) use of antithrombotics/antiplatelets; F17.210 Nicotine dependence, cigarettes, uncomplicated
CPT/HCPCS: 36415; 85025; 80053; J1200; S0028; 99283

== ENCOUNTER 2020-02-27 08:38 | Emergency (ER) | payer SELFPAY ==
[2020-02-27 09:11] LABS: ABSOLUTE EOSINOPHILS # (AUTO) 0.2 10^3/uL (0.0-0.6); ABSOLUTE LYMPHOCYTES (AUTO) 0.7 10^3/uL (0.5-4.7); ABSOLUTE MONOCYTES (AUTO) 0.8 10^3/uL (0.1-1.4); ABSOLUTE NEUT (AUTO) 4.4 10^3/uL (1.7-8.2); BASOPHILS % (AUTO) 0.6 % (0-2); EOSINOPHILS % (AUTO) 2.9 % (0-6); HEMATOCRIT 41.1 % (37.9-51.0); HEMOGLOBIN 14.4 g/dL (13.5-17.0); LYMPHOCYTES % (AUTO) 11.7 % (13-45); MEAN CORPUSCULAR HEMOGLOBIN 35.5 pg (27.0-33.4); MEAN CORPUSCULAR HGB CONC 35.1 g/dL (32.0-36.0); MEAN CORPUSCULAR VOLUME 101 fl (80-97); MONOCYTES % (AUTO) 12.8 % (3-13); PLATELET COUNT 170 10^3/uL (150-450); RED BLOOD COUNT 4.06 10^6/uL (4.35-5.55); RED CELL DISTRIBUTION WIDTH 13.6 % (11.5-14.0); TOTAL CELLS COUNTED % (AUTO) 100 %; WHITE BLOOD COUNT 6.1 10^3/uL (4.0-10.5)
--- NOTE | 2020-02-27 09:27 | ER Document Report ---
ED General - General Chief Complaint: Palpitations Stated Complaint: IRREGULAR HEARTBEAT Time Seen by Provider: 02/27/20 09:14 Primary Care Provider: [facility] [Primary Care Provider] - Follow up as needed Notes: 59-year-old man presents to the emergency department history of awoke this morning and noted that his veins in the neck more jumping quickly, he also noted rapid heartbeat. He denies chest pain but did feel some chest pressure. He has a history of hypertension and also is taking Xarelto. He took his morning medications which include half a tablet of metoprolol 50 mg, Xarelto, hydralazi ne, and hydralazine. In the emergency department his EKG revealed a sinus tachycardia. Patient has a history of atrial flutter, chronic alcoholism, elevated liver function tests, cigarette smoking, and CHF. TRAVEL OUTSIDE OF THE [place] IN LAST 30 DAYS: No - Related Data Allergies/Adverse Reactions: No Known Allergies Allergy (Verified 03/15/19 15:42) Home Medications: metoprolol. xeralto. hydralazine. hydrochlorothiazide Past Medical History - Social History Smoking Status: Current Every Day Smoker Frequency of alcohol use: Social Drug Abuse: None Family History: Reviewed & Not Pertinent Patient has suicidal ideation: No Patient has homicidal ideation: No - Past Medical History Cardiac Medical History: Reports: Hx Atrial Fibrillation, Hx Congestive Heart Failure, Hx Hypertension Renal/ Medical History: Denies: Hx Peritoneal Dialysis Past Surgical History: Reports: Hx Orthopedic Surgery - RIGHT FINGER Review of Systems - Review of Systems Notes: Constitutional: Negative for fever. HENT: Negative for sore throat. Eyes: Negative for visual changes. Cardiovascular: + Chest tightness, rapid heartbeat Respiratory: + Shortness of breath. Gastrointestinal: Negative for abdominal pain, vomiting or diarrhea. Genitourinary: Negative for dysuria. Musculoskeletal: Negative for back pain. Skin: Negative for rash. Neurological: Negative for headaches, weakness or numbness. 10 point ROS negative except as marked above and in HPI. Physical Exam - Vital signs Vitals: Temp Pulse Resp BP Pulse Ox 99.0 F 105 H 16 119/79 97 02/27/20 08:41 02/27/20 08:41 02/27/20 08:41 02/27/20 08:41 02/27/20 08:41 - Notes Notes: PHYSICAL EXAMINATION: Physical Exam: General: Well-nourished well-developed 59-year-old man in no acute distress HEENT: NC/AT, pupils equal round and reactive to light, MM moist,nares clear, oropharynx clear, airway patent Neck: supple, no adenopathy, no masses. Good range of motion Lungs: clear, no wheezing, no rales no rhonchi CVS: Tachycardia and rhythm no murmur gallop or rub Abdomen: Soft, active, nontender, no masses, no hepatosplenomegaly Ext: No edema, clubbing or cyanosis. Neuro: Alert and responsive, moving all 4 extremities on command, cranial nerves intact, no focal findings Skin: Intact no open lesions, no rash PSYCH: Normal mood, normal affect. Course - Re-evaluation Re-evalutation: 02/27/20 13:52 Patient was feeling much better, initial EKG atrial flutter with cardiac rate of 106, no acute ST changes. Heart rate improved from 130 with the oral medications he took from home. Initial troponin 0.018, a repeat troponin 0.033. Given this interval change even though the patient is clinically improved I discussed coming in as an observation patient and having some repeat trending performed. Patient is agreeable with this plan. The hospitalist was contacted, the patient will be admitted, observation, telemetry. - Vital Signs Vital signs: Temp Pulse Resp BP Pulse Ox 98.5 F 105 H 20 124/96 H 96 02/27/20 09:02 02/27/20 08:41 02/27/20 13:01 02/27/20 13:00 02/27/20 13:01 - Laboratory Result Diagrams: 02/27/20 09:00 02/27/20 09:00 Laboratory results interpreted by me: 02/27/20 02/27/20 02/27/20 09:00 09:00 09:00 RBC 4.06 L MCV 101 H MCH 35.5 H Lymph % (Auto) 11.7 L PT 28.6 H Sodium 134.3 L Chloride 97 L BUN 23 H Glucose 158 H Total Bilirubin 1.4 H AST 120 H ALT 88 H NT-Pro-B Natriuret Pep 02/27/20 09:00 RBC MCV MCH Lymph % (Auto) PT Sodium Chloride BUN Glucose Total Bilirubin AST ALT NT-Pro-B Natriuret Pep 1690 H - Diagnostic Test Radiology reviewed: Image reviewed, Reports reviewed - Chest x-ray: Cardiomegaly, no infiltrates or effusion. Discharge - Discharge Clinical Impression: Tachycardia, Elevated troponin I level Atrial flutter Qualifiers: Atrial flutter type: unspecified Qualified Code(s): I48.92 - Unspecified atrial flutter Condition: Good Disposition: ADMITTED OBSERVATION Admitting Provider: David (Hospitalist) Unit Admitted: Telemetry Referrals: [facility] [Primary Care Provider] - Follow up as needed
[2020-02-27 09:28] LABS: ALBUMIN 4.6 g/dL (3.5-5.0); ALKALINE PHOSPHATASE 98 U/L (38-126); ANION GAP 9 (5-19); ASPARTATE AMINO TRANSFERASE 120 U/L (17-59); BILIRUBIN,TOTAL 1.4 mg/dL (0.2-1.3); BLOOD UREA NITROGEN 23 mg/dL (7-20); CALCIUM 9.5 mg/dL (8.4-10.2); CARBON DIOXIDE 28 mmol/L (22-30); CHLORIDE 97 mmol/L (98-107); CREATINE KINASE 69 U/L (55-170); GLUCOSE 158 mg/dL (75-110); TOTAL PROTEIN 7.6 g/dL (6.3-8.2)
[2020-02-27 09:38] LABS: INTERNATIONAL RATION (INR) 2.63; PROTHROMBIN TIME 28.6 SEC (11.4-15.4)
--- NOTE | 2020-02-27 09:41 | RADIOLOGY REPORT (SQ) ---
EXAM DESCRIPTION: CHEST SINGLE VIEW IMAGES COMPLETED DATE/TIME: 02/27/2020 9:24 am REASON FOR STUDY: cp COMPARISON: 02/05/2019 EXAM PARAMETERS: NUMBER OF VIEWS: One view. TECHNIQUE: Single frontal radiographic view of the chest acquired. RADIATION DOSE: NA LIMITATIONS: None. FINDINGS: LUNGS AND PLEURA: No opacities, masses or pneumothorax. No pleural effusion. MEDIASTINUM AND HILAR STRUCTURES: No masses. Contour normal. HEART AND VASCULAR STRUCTURES: Cardiomegaly, unchanged finding. Normal vasculature. BONES: The osseous structures are stable in appearance. HARDWARE: None in the chest. OTHER: No other significant finding. IMPRESSION: 1. Cardiomegaly, stable finding since the prior examination dated 02/05/2019. 2. No acute pulmonary findings. TECHNICAL DOCUMENTATION: JOB ID: [id number] 2010 [employer]- All Rights Reserved Reading location - IP/workstation name: [email or web address]
[2020-02-27 09:42] LABS: CREATINE KINASE MB 0.74 ng/mL (<4.55); TROPONIN I 0.018 ng/mL
--- NOTE | 2020-02-27 09:54 | EKG REPORT ---
SEVERITY:- ABNORMAL ECG - A FLUTTER WITH 2:1 CONDUCTION. LEFT VENTRICULAR HYPERTROPHY : Confirmed by: Angeles Powell 27-Feb-2020 09:53:31
[2020-02-27] MEDS ORDERED: METOPROLOL TARTRATE PF/INJ 5 MG/5 ML SDV IV ONE (13:58)
[2020-02-27 15:21] VITALS: BP 139/102
--- NOTE | 2020-02-27 16:26 | H&P/Discharge Summary ---
Discharge Summary Admission Date/PCP: 02/27/20 14:12 [facility] Discharge Date: 02/27/20 Resuscitation Status: Full Code - Discharge Diagnosis (1) Alcohol abuse Is this a current diagnosis for this admission?: Yes Summary: Patient admits to increased alcohol intake over the last month. He does admit that this is related to generalized anxiety and social isolation due to COVID-19 social distancing recommendations. He admits that he is likely self-medicating his anxiety. Discussed how alcohol intake could potentially precipitate additional atrial fibrillation RVR/a flutter episodes. Strongly encourage the patient to decrease/discontinue his alcohol intake. Offered to have the patient speak with mental health services prior to going home; this was politely declined. Offered to assist in making arrangements for the patient to discharge to the [facility] from the ED for treatment; again politely declined. (2) Anxiety Is this a current diagnosis for this admission?: Yes Summary: Long discussion had regarding patient's anxiety related to current [place] virus pandemic. We discussed signs and symptoms to be aware of, self protective measures, and resources should he have further questions. He was provided with the contact number to the [place] coronavirus hotline (211). He was also provided with the [place] crisis text phone number. As above, patient declined to meet with mental health services. Offered to send in a prescription for SSRI/SNRI; patient declined antidepressant/anxiety medication at this time. He was strongly encouraged to reach out to his family members by phone or video chat for support. He was also advised that I would make arrangements for him to have a follow-up appointment with his primary care provider as he admitted that he was feeling somewhat lost with all of the facility closures/changes related to COVID (3) Atrial flutter Is this a current diagnosis for this admission?: Yes Summary: PAF; hx of the same. Likely precipitated by the patient's increased alcohol intake. Discussed with Dr. Wagner, who the patient has seen in the past. Patient will follow-up with Dr. Wagner on Monday at 1 PM. He was provided the office contact information. He is instructed to continue his home dose metoprolol. Continue home dose of Xarelto. Patient is instructed that should he have another episode of palpitations may take additional tablet of metoprolol 50 mg. Should his symptoms persist 1 hour later, or if associated with any other concerning symptoms, he should return to the emergency department immediately. (4) Tachycardia Is this a current diagnosis for this admission?: Yes Summary: Secondary to #1-3 Significantly improved at time of discharge. Now in NSR with HR of 90 (at rest) to 107 (with activity). (5) CHF (congestive heart failure) Is this a current diagnosis for this admission?: Yes Summary: Echocardiogram February 2019 shows LVEF 40 to 45%. He has discharged home on his home dose metoprolol, hydralazine, hydrochlo rothiazide, and Xarelto. To follow-up with Dr. Wagner on Monday. Allergies/Adverse Reactions: No Known Allergies Allergy (Verified 03/15/19 15:42) Discharge Diet: Cardiac Discharge Activity: Activity As Tolerated, Balance Activity w/Rest History of Present Illness Admission Date/PCP: 02/27/20 14:12 [facility] Patient complains of: palpitations, anxiety History of Present Illness: LOU HEADLEY is a 59 year old male with a past medical history of systolic CHF (LVEF 45% by echo 2018), hypertension, PAF, chronically anticoagulated on Xarelto, and alcohol abuse with continuous use. The patient states that he did not sleep well last night; woke approximately 2 AM with an odd fluttering sensation in his neck. He states that this morning, the fluttering continued and was associated with flushed sensation and diaphoresis. The patient states that he took his normal home medications and decided to drive to the emergency department to be evaluated. He denies associated headache, dizziness, chest pain, dyspnea, nausea. On arrival to the emergency department he was found to be in a flutter with a 2- 1 conduction and rate of 106. Only a few moments later, the patient spontan eously converted into normal sinus rhythm. CBC unremarkable, coagulation studies as expected for appropriate for patient requiring anticoagulation, and chemistry revealed mildly elevated LFTs, proBNP of 1690, and negative troponins x2. Troponins were trending up slightly from 0.018-0.033 and therefore was recommended by the emergency department referred to the hospitalist service for further evaluation and management. Past Medical History Cardiac Medical History: Reports: Atrial Fibrillation, Congestive Heart Failure, Hypertension Pulmonary Medical History: Reports: None EENT Medical History: Reports: None Neurological Medical History: Reports: None Endocrine Medical History: Reports: None Renal/ Medical History: Reports: None Malignancy Medical History: Reports: None GI Medical History: Reports: None Musculoskeltal Medical History: Reports: None Skin Medical History: Reports: None Psychiatric Medical History: Reports: Alcohol Dependency, General Anxiety Disorder Traumatic Medical History: Reports: None Hematology: Reports: None Infectious Medical History: Reports: None Past Surgical History Past Surgical History: Reports: Orthopedic Surgery - RIGHT FINGER Social History Information Source: Patient Lives with: Alone Smoking Status: Former Smoker Frequency of Alcohol Use: Heavy Hx Recreational Drug Use: Yes Hx Prescription Drug Abuse: No - Advance Directive Resuscitation Status: Full Code Family History Family History: Reviewed & Not Pertinent Parental Family History Reviewed: Yes Children Family History Reviewed: Yes Sibling(s) Family History Reviewed.: Yes Review of Systems Constitutional: ABSENT: chills, fever(s), headache(s), weight gain, weight loss Eyes: ABSENT: visual disturbances Ears: ABSENT: hearing changes Cardiovascular: PRESENT: palpitations. ABSENT: chest pain, dyspnea on exertion, edema, orthropnea Respiratory: ABSENT: cough, hemoptysis Gastrointestinal: ABSENT: abdominal pain, constipation, diarrhea, hematemesis, hematochezia, nausea, vomiting Genitourinary: ABSENT: dysuria, hematuria Musculoskeletal: ABSENT: joint swelling Integumentary: ABSENT: rash, wounds Neurological: ABSENT: abnormal gait, abnormal speech, confusion, dizziness, focal weakness, syncope Psychiatric: PRESENT: anxiety. ABSENT: depression, homidical ideation, suicidal ideation Endocrine: ABSENT: cold intolerance, heat intolerance, polydipsia, polyuria Hematologic/Lymphatic: ABSENT: easy bleeding, easy bruising Physical Exam Vital Signs: Temp Pulse Resp BP Pulse Ox 98.2 F 107 H 20 139/102 H 95 02/27/20 15:10 02/27/20 15:10 02/27/20 15:10 02/27/20 15:10 02/27/20 15:10 Intake & Output 02/26/20 02/27/20 02/28/20 06:59 06:59 06:59 Weight 82.6 kg General appearance: PRESENT: no acute distress, cooperative, well-developed, well-nourished Head exam: PRESENT: atraumatic, normocephalic Eye exam: PRESENT: conjunctiva pink, EOMI, PERRLA. ABSENT: scleral icterus Mouth exam: PRESENT: moist, tongue midline Respiratory exam: PRESENT: clear to auscultation lv, symmetrical, unlabored. ABSENT: rales, rhonchi, wheezes Cardiovascular exam: PRESENT: RRR, +S1, +S2. ABSENT: diastolic murmur, rubs, systolic murmur Pulses: PRESENT: normal dorsalis pedis pul Vascular exam: PRESENT: normal capillary refill GI/Abdominal exam: PRESENT: normal bowel sounds, soft. ABSENT: distended, g uarding, mass, organolmegaly, rebound, tenderness Rectal exam: PRESENT: deferred Extremities exam: PRESENT: full ROM. ABSENT: calf tenderness, clubbing, pedal edema Musculoskeletal exam: PRESENT: ambulatory Neurological exam: PRESENT: alert, awake, oriented to person, oriented to place, oriented to time, oriented to situation, CN II-XII grossly intact. ABSENT: motor sensory deficit Psychiatric exam: PRESENT: anxious, appropriate affect. ABSENT: homicidal ideation, suicidal ideation Skin exam: PRESENT: dry, intact, warm. ABSENT: cyanosis, rash Results Laboratory Results: 02/27/20 09:00 02/27/20 09:00 02/27/20 02/27/20 09:00 09:00 WBC 6.1 RBC 4.06 L Hgb 14.4 Hct 41.1 MCV 101 H MCH 35.5 H MCHC 35.1 RDW 13.6 Plt Count 170 Seg Neutrophils % 72.0 Sodium 134.3 L Potassium 4.0 Chloride 97 L Carbon Dioxide 28 Anion Gap 9 BUN 23 H Creatinine 1.07 Est GFR ( Amer) > 60 Glucose 158 H Calcium 9.5 Total Bilirubin 1.4 H AST 120 H Alkaline Phosphatase 98 Total Protein 7.6 Albumin 4.6 02/27/20 02/27/20 02/27/20 09:00 09:00 09:00 Creatine Kinase 69 CK-MB (CK-2) 0.74 Troponin I 0.018 NT-Pro-B Natriuret Pep 1690 H 02/27/20 11:50 Creatine Kinase CK-MB (CK-2) Troponin I 0.033 NT-Pro-B Natriuret Pep Impressions: Chest X-Ray 02/27/20 09:01 IMPRESSION: 1. Cardiomegaly, stable finding since the prior examination dated 02/05/2019. 2. No acute pulmonary findings. Qualifiers PATIENT BEING DISCHARGED WITH ANY OF THE FOLLOWING DIAGNOSIS: No Assessment & Plan - Time Time Spent: 50 to 70 Minutes Medications reviewed and adjusted accordingly: Yes Anticipated dischagre: Home - Plan Summary Plan Summary: Personally contacted the patient's pharmacy to verify his medications and sent over any prescriptions needed to ensure he had at least a 1 month supply available. Spoke with CHERIE Cervantes. Pedro will reach out to the patient's primary care provider at the [facility] to ask that they arrange for an ER follow-up. Explained to Pedro that the patient is confused about how to seek care during the COVID shutdown; she stated that she would assist in ensuring appropriate follow up. Pedro will also contact the financial counselling office as his [facility] [employer] [facility] a few weeks ago and patient was have anxiety with regards on how to seek assistance in reapplying during the shut down. Expressed to Pedro that the patient was demonstrating significant amounts of anx iety with feeling isolated from his healthcare services and was distraught over how to continue services. Asked that he be referred to the community grill associate program, as well, during the COVID pandemic.
== END 2020-02-27 14:10 | disposition home or self-care (01) ==
LOC: ER 08:38 → UNDOADMOB 14:12 → EH 14:12
DX: I48.92 Unspecified atrial flutter (principal); R79.89 Other specified abnormal findings of blood chemistry; R00.0 Tachycardia, unspecified; R07.9 Chest pain, unspecified; I10 Essential (primary) hypertension; R06.02 Shortness of breath; Z79.01 Long term (current) use of anticoagulants; Z79.899 Other long term (current) drug therapy; F17.200 Nicotine dependence, unspecified, uncomplicated
CPT/HCPCS: 93005; 99285; 96374; 36415; 82553; 82550; 85025; 85610; 80053; 84484; 83880; 71045; 93010; J3490

== ENCOUNTER → 2020-04-30 | Outpatient (CLI) | payer OTHER | LOC: SP 09:11 | PROVIDERS: ATTEND Family Medicine | DX: I50.9 Heart failure, unspecified (principal); I48.0 Paroxysmal atrial fibrillation | CPT/HCPCS: 93005; 93010 ==

== ENCOUNTER → 2020-06-18 | Outpatient (CLI) | payer OTHER ==
[2020-06-18 12:32] LABS: ABSOLUTE BASOPHILS # (AUTO) 0.1 10^3/uL (0.0-0.2); ABSOLUTE EOSINOPHILS # (AUTO) 0.4 10^3/uL (0.0-0.6); ABSOLUTE MONOCYTES (AUTO) 0.7 10^3/uL (0.1-1.4); ABSOLUTE NEUT (AUTO) 3.1 10^3/uL (1.7-8.2); HEMATOCRIT 42.3 % (37.9-51.0); HEMOGLOBIN 14.7 g/dL (13.5-17.0); LYMPHOCYTES % (AUTO) 19.5 % (13-45); MEAN CORPUSCULAR HEMOGLOBIN 34.9 pg (27.0-33.4); MEAN CORPUSCULAR HGB CONC 34.8 g/dL (32.0-36.0); MEAN CORPUSCULAR VOLUME 100 fl (80-97); MONOCYTES % (AUTO) 13.4 % (3-13); PLATELET COUNT 167 10^3/uL (150-450); RED BLOOD COUNT 4.22 10^6/uL (4.35-5.55); RED CELL DISTRIBUTION WIDTH 13.6 % (11.5-14.0); SEGMENTED NEUTROPHILS % (AUTO) 59.1 % (42-78); TOTAL CELLS COUNTED % (AUTO) 100 %; WHITE BLOOD COUNT 5.3 10^3/uL (4.0-10.5)
[2020-06-18 12:37] LABS: ALBUMIN 4.9 g/dL (3.5-5.0); ALKALINE PHOSPHATASE 64 U/L (38-126); ANION GAP 8 (5-19); ASPARTATE AMINO TRANSFERASE 79 U/L (17-59); BILIRUBIN,DIRECT 0.1 mg/dL (0.0-0.4); BILIRUBIN,TOTAL 0.9 mg/dL (0.2-1.3); BLOOD UREA NITROGEN 12 mg/dL (7-20); CALCIUM 9.8 mg/dL (8.4-10.2); CARBON DIOXIDE 29 mmol/L (22-30); CHLORIDE 101 mmol/L (98-107); CHOLESTEROL 170.68 mg/dL (0-200); GLUCOSE 93 mg/dL (75-110); POTASSIUM 4.2 mmol/L (3.6-5.0); TOTAL PROTEIN 8.2 g/dL (6.3-8.2); TRIGLYCERIDES 113 mg/dL (<150)
[2020-06-18 12:48] LABS: DIRECT LDL 89 mg/dL (<100)
== END ==
LOC: OD 11:25
PROVIDERS: ATTEND Internal Medicine
DX: I10 Essential (primary) hypertension (principal); I48.91 Unspecified atrial fibrillation; K81.1 Chronic cholecystitis
CPT/HCPCS: 36415; 80053; 80061; 83036; 84153; 84443; 85025